=== PATIENT | male | born 1950 | race Caucasian/White ===

== ENCOUNTER 2021-07-29 12:30 | Inpatient (IN) | payer OTHER ==
[~2021-07-29] VITALS: Ht 177.8 cm; Wt 135.0 kg
[2021-07-29] MEDS ORDERED: CefTRIAXone 2gm/D5W 50ml BAG 50 ML IV ONE (12:40)
[2021-07-29 12:48] LABS: ABG BASE EXCESS -3.7 mmol/L (-2.0-2.0); ABG HCO3 32.7 mmol/L (22.0-26.0); ABG OXYGEN SATURATION 92.7 % (94-97); ABG PCO2 (T) 143.9 mmHg (35.0-48.0); ABG PO2 (T) 90.4 mmHg (75.0-100.0); ALLEN'S TEST POSITIVE; FCOHb 1.3 % (0.0-3.9); FLOW 15 L/min; FMetHb 0.4 % (0.0-1.5); FO2Hb 91.1 % (94-97); TOTAL HEMOGLOBIN 15.5 G/dl (14.0-18.0)
[2021-07-29] MEDS ORDERED: ipratropium/albuterol 3ml nebule NEB ONE (12:50)
[2021-07-29] MEDS ORDERED: methylPREDNISolone sod succ 125mg/2ml vial IV ONE (12:50)
[2021-07-29] MEDS ORDERED: azithromycin/NS 500mg/250ml 250 ML IV ONE ×2 (13:05→16:00)
[2021-07-29 13:11] LABS: BASOPHILS # (AUTO) 0.1 X10'3 (0-0.2); BASOPHILS % (AUTO) 0.3 % (0-1); HEMOGLOBIN 14.7 g/dl (14.0-17.9)
[2021-07-29 13:12] LABS: EOSINOPHILS # (AUTO) 0.1 X10'3 (0-0.9); EOSINOPHILS % (AUTO) 0.2 % (0-6); HEMATOCRIT 46.9 % (42.0-52.0); LYMPHOCYTES # (AUTO) 28.1 X10'3 (1.1-4.8); LYMPHOCYTES % (AUTO) 67.9 % (21-51); MEAN CORPUSCULAR HGB CONC 31.3 g/dL (33.0-36.5); MEAN CORPUSCULAR VOLUME 105.5 FL (78-98); MEAN PLATELET VOLUME 8.8 FL (7.4-10.4); MONOCYTES % (AUTO) 2.4 % (2-12); NEUTROPHILS # (AUTO) 12.1 X10'3 (1.8-7.7); NEUTROPHILS % (AUTO) 29.2 % (42-75); PLATELET COUNT 157 X10'3 (140-440); RED BLOOD COUNT 4.45 X10'6 (4.70-6.10); RED CELL DISTRIBUTION WIDTH 15.7 % (11.5-14.5)
[2021-07-29 13:29] LABS: WHITE BLOOD COUNT 41.4 X10'3 (4.5-11.0)
[2021-07-29 13:31] LABS: TOTAL CELLS COUNTED 100
[2021-07-29 13:32] LABS: PLATELET ESTIMATE NORMAL
[2021-07-29 13:36] LABS: ANISOCYTOSIS 1+
--- NOTE | 2021-07-29 13:37 | NUR ---
PER PT DAUGHTER, PT VACCINATED X2 DOSES PHIZER
--- NOTE | 2021-07-29 13:37 | NUR ---
PT RESPONSIVE TO NAME, EYE MOVEMENT TOWARDS VOICE, NODDED HEAD WHEN I EXPLAINED WHERE HE WAS AND THE SITUATION. WHEN ASKED PT IF HE IS IN PAIN, HE DID NOT RESPOND.
[2021-07-29 13:44] LABS: SMUDGE CELLS 2+
[2021-07-29 13:51] LABS: ABG BASE EXCESS -5.5 mmol/L (-2.0-2.0); ABG HCO3 26.7 mmol/L (22.0-26.0); ABG OXYGEN SATURATION 97.4 % (94-97); ABG PCO2 (T) 87.5 mmHg (35.0-48.0); ABG PO2 (T) 121.8 mmHg (75.0-100.0); ALLEN'S TEST POSITIVE; FCOHb 1.3 % (0.0-3.9); FMetHb 0.4 % (0.0-1.5); FO2Hb 95.7 % (94-97); RESPIRATORY RATE 16 b/min; TIDAL VOLUME 522 mL; TOTAL HEMOGLOBIN 15.3 G/dl (14.0-18.0)
[2021-07-29 14:08] LABS: CLARITY,URINE CLOUDY (Clear); COLOR,URINE YELLOW (Yellow); GLUCOSE, URINE 500 mg/dl (Neg); KETONES,URINE NEGATIVE (Neg); LEUKOCYTE ESTERASE ,URINE NEGATIVE (Neg); NITRITES, URINE NEGATIVE (Neg); OCCULT BLOOD,URINE SMALL (Neg); PROTEIN,URINE 100 mg/dl (Neg)
[2021-07-29 14:11] LABS: UA COLLECTION TYPE STRAIGHT CATH
[2021-07-29 14:15] LABS: SQUAMOUS EPITHELIAL CELL,UR MANY /LPF (FEW)
[2021-07-29 14:16] LABS: BACTERIA,URINE 1+ /HPF (Neg); RBC,URINE 0-2 /HPF (0-2); RENAL CELLS, URINE MANY /HPF
[2021-07-29 14:17] LABS: AMORPHOUS URATES 3+
[2021-07-29 14:28] LABS: ALANINE AMINOTRANSFERASE 6 U/L (12-78); ALBUMIN 3.1 G/DL (3.4-5.0); ALBUMIN/GLOBULIN RATIO 0.7 (1.1-1.5); ALKALINE PHOSPHATASE 116 IU/L (46-116); ANION GAP 6 (8-16); ASPARTATE AMINO TRANSFERASE 18 U/L (10-37); BILIRUBIN,TOTAL 0.6 MG/DL (0.1-1.0); BLOOD UREA NITROGEN 41 MG/DL (7-18); BUN/CREATININE RATIO 15.1 (5.4-32.0); CALCIUM 8.3 MG/DL (8.5-10.1); CHLORIDE 98 MMOL/L (99-107); CREATININE 2.71 MG/DL (0.60-1.10); GLUCOSE 435 MG/DL (70-104); SODIUM 135 MMOL/L (135-145); TOTAL CARBON DIOXIDE 31.1 MMOL/L (24-32); TOTAL PROTEIN 7.5 G/DL (6.4-8.2); eGFR 23 ML/MIN
[2021-07-29 14:30] LABS: POTASSIUM 7.1 MMOL/L (3.5-5.1)
[2021-07-29] MEDS ORDERED: sodium polystyrene sulfonate 15gm/60ml oral suspension PO ONE ×3 (14:35→21:30)
[2021-07-29] MEDS ORDERED: furosemide 10 MG/1 ML 10ml inj IV ONE (14:35)
[2021-07-29] MEDS ORDERED: albuterol 2.5 MG/3 ML nebule CONTNEB PRN (14:35)
[2021-07-29] MEDS ORDERED: insulin regular, human 10 units/0.1 ml syringe IV ONE (15:15)
[2021-07-29 15:41] LABS: ABG BASE EXCESS -1.6 mmol/L (-2.0-2.0); ABG HCO3 30.2 mmol/L (22.0-26.0); ABG OXYGEN SATURATION 96.8 % (94-97); ABG PCO2 (T) 89.4 mmHg (35.0-48.0); ABG PO2 (T) 104.2 mmHg (75.0-100.0); ALLEN'S TEST POSITIVE; FCOHb 0.9 % (0.0-3.9); FMetHb 0.4 % (0.0-1.5); FO2Hb 95.5 % (94-97); RESPIRATORY RATE 16 b/min; TIDAL VOLUME 658 mL
[2021-07-29] MEDS ORDERED: ketamine 50 mg/ml 10ml vial IV ONE (15:45)
[2021-07-29] MEDS ORDERED: etomidate 2mg/ml inj. IV ONE (15:45)
[2021-07-29] MEDS ORDERED: propofol 1000mg/100ml bottle 100 ML IV PRN (15:45)
[2021-07-29] MEDS ORDERED: potassium Cl 20mEq/100mL bag 100 ML IV PRN (16:00)
[2021-07-29] MEDS ORDERED: LIDOcaine 2% 10ml TOPICAL JELLY (Urojet) TP ONE (16:00)
[2021-07-29] MEDS ORDERED: ipratropium/albuterol 3ml nebule NEB PRN (16:00)
[2021-07-29] MEDS ORDERED: acetaminophen 325mg tablet PO PRN ×2 (16:00)
[2021-07-29] MEDS ORDERED: potassium CL 10mEq/100ml bag 100 ML IV PRN (16:00)
[2021-07-29] MEDS ORDERED: midazolam 1 mg/ML 2ml injection IV ONE ×2 (16:00→17:10)
[2021-07-29] MEDS ORDERED: CefTRIAXone/D5W-Rocephin 1gm 50 ML IV ONE (16:00)
[2021-07-29] MEDS ORDERED: potassium Cl 20 mEq SR tablet PO PRN ×2 (16:00)
[2021-07-29] MEDS ORDERED: fentaNYL/PF 50MCG/1 ML 2ML syringe IV PRN (16:00)
[2021-07-29] MEDS: normal saline 1000ml 1,000 ML IV SCH ×2 (16:00→22:40)
[2021-07-29] MEDS ORDERED: ondansetron/PF 4mg/2ml inj IV PRN (16:00)
--- NOTE | 2021-07-29 16:17 | NUR ---
VERBAL ORDER FOR ADDITIONAL 20MG ETOMIDATE DUE TO DIFFICULT INTUBATION. PER DR. YOON
--- NOTE | 2021-07-29 16:20 | NUR ---
BP 54/35, UNABLE TO PALPATE PULE. NO MECHANICAL FUNCTION OF THE HEART ON ULTRASOUND. COMPRESSIONS STARTED. DC'D COMPRESSIONS, PULSE PALPABLE. BEDSIDE ECHO ORDERED.
[2021-07-29] MEDS ORDERED: NORepinephrine 8mg/ 250ml NS 250 ML IV ONE (16:25)
[2021-07-29] MEDS ORDERED: DOPamine 400MG/D5W 250ML CRITICAL CARE IV SCH (16:35)
[2021-07-29] MEDS ORDERED: GABA300C PO (16:53)
[2021-07-29] MEDS ORDERED: CARV6.253 PO (16:53)
[2021-07-29] MEDS ORDERED: OMEP-50 PO (16:53)
[2021-07-29] MEDS ORDERED: SERT-434 PO (16:53)
[2021-07-29] MEDS ORDERED: FURO40TA4 PO (16:53)
[2021-07-29] MEDS ORDERED: ALBU2.5V10 NEB (16:53)
[2021-07-29] MEDS ORDERED: SPIR25TA5 PO (16:53)
[2021-07-29] MEDS ORDERED: INSU100V9 SQ (16:53)
[2021-07-29] MEDS ORDERED: CELE100C98 PO (16:53)
[2021-07-29] MEDS ORDERED: DIVA-37 PO (16:53)
[2021-07-29] MEDS ORDERED: SIMV10TA98 PO (16:53)
[2021-07-29] MEDS ORDERED: LEVO200T8 PO (16:53)
[2021-07-29] MEDS ORDERED: INSU100V11 SQ (16:53)
--- NOTE | 2021-07-29 17:16 | NUR ---
MD HAS NO ORDERS FOR SEDATION AT THIS TIME PER [id number]. ADMINISTERING 2MG IVP ATIVAN VERBAL ORDERS, MD AT BEDSIDE. Addendum: 07/29/21 at 1724 by LOWLALUANALI ERROR: NO ATIVAN WAS GIVEN. ORDER WAS 2MG MIDAZOLAM. 2 MG MIDAZOLAM ADMINISTERED ORDERED.
--- NOTE | 2021-07-29 17:18 | NUR ---
ATTEMPTING TO PLACE SECOND CENTRAL LINE
[2021-07-29] MEDS ORDERED: fentaNYL/PF 50MCG/1 ML 2ML syringe IV ONE (17:40)
[2021-07-29] MEDS ORDERED: midazolam 100mg in NS 100ml 100 ML IV PRN (17:40)
[2021-07-29 17:53] LABS: ABG BASE EXCESS -5.4 mmol/L (-2.0-2.0); ABG OXYGEN SATURATION 91.4 % (94-97); ABG PCO2 (T) 82.7 mmHg (35.0-48.0); ABG PO2 (T) 71.6 mmHg (75.0-100.0); ALLEN'S TEST POSITIVE; FCOHb 0.7 % (0.0-3.9); FMetHb 0.3 % (0.0-1.5); FO2Hb 90.5 % (94-97); PEEP 5 cm H2O; RESPIRATORY RATE 20 b/min; TIDAL VOLUME 374 mL; TOTAL HEMOGLOBIN 14.2 G/dl (14.0-18.0)
[2021-07-29] MEDS: FENTANYL-0.9 % NACL/PF 100 ML IV PRN (18:00)
[2021-07-29] MEDS: midazolam 100mg in NS 100ml 100 ML IV PRN (18:01)
--- NOTE | 2021-07-29 18:32 | NUR ---
REPORT CALLED TO KIDS ACTIVITIES COACH. WAITING FOR RT TO TAKE PT TO CT. WILL THEN TRANSPORT PT TO ICU.
[2021-07-29 19:00] VITALS: BP 125/66
[2021-07-29] MEDS ORDERED: dextrose 50%-water 50ml dispensing syringe IV ONE (19:10)
[2021-07-29] MEDS ORDERED: sodium bicarbonate (8.4%) 1 mEq/ml syringe IV ONE (19:10)
[2021-07-29] MEDS ORDERED: calcium chloride 100 MG/1 ML inj IV ONE (19:10)
[2021-07-29] MEDS ORDERED: albuterol 2.5 MG/3 ML nebule CONTNEB ONE (19:10)
[2021-07-29] MEDS ORDERED: insulin regular, human U-100 3ml vial - multi-dose IV ONE (19:10)
[2021-07-29] MEDS ORDERED: sodium bicarbonate (8.4%) 1 mEq/ml syringe ONE (19:48)
[2021-07-29 20:00] VITALS: BP 109/59
[2021-07-29] MEDS: divalproex sodium 500mg tablet.DR PO SCH (20:00)
[2021-07-29] MEDS: ipratropium/albuterol 3ml nebule NEB SCH ×2 (20:33→23:55)
[2021-07-29 21:00] VITALS: BP 117/67
[2021-07-29] MEDS ORDERED: atorvastatin 10mg tablet PO SCH (21:00)
[2021-07-29 22:00] VITALS: BP 130/81
[2021-07-29 23:00] VITALS: BP 120/75
[2021-07-29] MEDS ORDERED: glucagon, human recombinant 1mg kit SUBCUT PRN (23:25)
[2021-07-29] MEDS ORDERED: dextrose ORAL solution 15 GM/59 ML bottle PO PRN ×2 (23:25)
[2021-07-29] MEDS ORDERED: dextrose 50%-water 50ml dispensing syringe IV PRN (23:25)
[2021-07-29] MEDS ORDERED: MESSAGE TO PHARMACY PO ONE (23:25)
[2021-07-29] MEDS: famotidine/PF 10 mg/ml inj IV SCH (23:41)
[2021-07-29] MEDS: docusate sod 100mg capsule PO SCH (23:43)
[2021-07-29] MEDS: heparin, porcine 5000 units/ml vial SQ SCH (23:44)
[2021-07-29] MEDS: DOPamine 400mg/D5W 250ml 250 ML IV SCH (23:54)
[2021-07-30] VITALS (22 sets, daily range): BP systolic 93–149; BP diastolic 59–85
[2021-07-30] MEDS: insulin Lispro (HumaLOG) vial - multi-dose SQ SCH ×5 (00:35→11:16)
[2021-07-30] MEDS: insulin glargine (Lantus) pen - multi-dose SQ SCH (00:36)
[2021-07-30] MEDS: valproate sod 250mg/5ml UD oral syrup CORPAK SCH ×4 (00:38→20:20)
[2021-07-30 00:41] LABS: EOSINOPHILS % (AUTO) 0 % (0-6); HEMOGLOBIN 12.9 g/dl (14.0-17.9)
[2021-07-30 00:44] LABS: BASOPHILS % (AUTO) 0.1 % (0-1); LYMPHOCYTES # (AUTO) 18.2 X10'3 (1.1-4.8); LYMPHOCYTES % (AUTO) 60.8 % (21-51); MEAN CORPUSCULAR HEMOGLOBIN 33.7 PG (27.0-31.0); MEAN CORPUSCULAR HGB CONC 32.2 g/dL (33.0-36.5); MEAN CORPUSCULAR VOLUME 104.4 FL (78-98); MONOCYTES # (AUTO) 1.3 X10'3 (0-0.9); MONOCYTES % (AUTO) 4.3 % (2-12); NEUTROPHILS # (AUTO) 10.5 X10'3 (1.8-7.7); NEUTROPHILS % (AUTO) 34.8 % (42-75); PLATELET COUNT 105 X10'3 (140-440); RED BLOOD COUNT 3.83 X10'6 (4.70-6.10); RED CELL DISTRIBUTION WIDTH 15.2 % (11.5-14.5)
[2021-07-30 00:59] LABS: ALANINE AMINOTRANSFERASE 6 U/L (12-78); ALBUMIN 2.4 G/DL (3.4-5.0); ALBUMIN/GLOBULIN RATIO 0.6 (1.1-1.5); ALKALINE PHOSPHATASE 81 IU/L (46-116); ANION GAP 14 (8-16); ASPARTATE AMINO TRANSFERASE 16 U/L (10-37); BILIRUBIN,TOTAL 0.7 MG/DL (0.1-1.0); BLOOD UREA NITROGEN 43 MG/DL (7-18); BUN/CREATININE RATIO 16.2 (5.4-32.0); CALCIUM 8.4 MG/DL (8.5-10.1); CHLORIDE 99 MMOL/L (99-107); CREATININE 2.65 MG/DL (0.60-1.10); MAGNESIUM 1.6 MG/DL (1.5-2.4); PHOSPHORUS 1.7 MG/DL (2.3-4.5); SODIUM 135 MMOL/L (135-145); TOTAL CARBON DIOXIDE 22.1 MMOL/L (24-32); TOTAL PROTEIN 6.1 G/DL (6.4-8.2); TRIGLYCERIDES 118 MG/DL (20-135); eGFR 24 ML/MIN
[2021-07-30 01:11] LABS: GLUCOSE 623 MG/DL (70-104)
--- NOTE | 2021-07-30 02:06 | NUR ---
Pt blood sugar is 575 pt was given [address] Seals [id number]
[2021-07-30] MEDS: Insulin Reg/NS 100units/100mL 100 ML IV SCH ×2 (02:40→14:36)
[2021-07-30 03:29] LABS: PLATELET ESTIMATE DECREASED; TOTAL CELLS COUNTED 100
[2021-07-30 03:30] LABS: ANISOCYTOSIS FEW; SMUDGE CELLS 1+
[2021-07-30 03:31] LABS: STOMATOCYTES FEW
[2021-07-30] MEDS: ipratropium/albuterol 3ml nebule NEB SCH ×6 (04:29→23:29)
[2021-07-30 04:47] LABS: ABG BASE EXCESS -6.3 mmol/L (-2.0-2.0); ABG HCO3 16.8 mmol/L (22.0-26.0); ABG OXYGEN SATURATION 97.8 % (94-97); ABG PCO2 (T) 26.3 mmHg (35.0-48.0); ABG PO2 (T) 91.3 mmHg (75.0-100.0); ALLEN'S TEST Modified; FCOHb 0.3 % (0.0-3.9); FMetHb 0.4 % (0.0-1.5); FO2Hb 97.1 % (94-97); PEEP 5 cm H2O; RESPIRATORY RATE 24 b/min; TIDAL VOLUME 601 mL; TOTAL HEMOGLOBIN 13.8 G/dl (14.0-18.0)
[2021-07-30] MEDS: DOPamine 400mg/D5W 250ml 250 ML IV SCH (05:29)
[2021-07-30] MEDS: normal saline 1000ml 1,000 ML IV SCH ×3 (05:35→18:40)
[2021-07-30] MEDS: FENTANYL-0.9 % NACL/PF 100 ML IV PRN ×2 (05:46→23:35)
[2021-07-30] MEDS ORDERED: levoTHYROXINE 100mcg tablet PO SCH (07:00)
[2021-07-30] MEDS: docusate sod 100mg capsule PO SCH (08:00)
[2021-07-30] MEDS: K and/or MAG REPLACEMENT MC SCH (08:00)
[2021-07-30] MEDS ORDERED: sertraline 50mg tablet PO SCH (08:00)
[2021-07-30] MEDS: CefTRIAXone/D5W-Rocephin 1gm 50 ML IV SCH (10:07)
[2021-07-30] MEDS: methylPREDNISolone sod succ/PF 40mg inj. IV SCH ×3 (10:09→20:35)
[2021-07-30] MEDS: famotidine/PF 10 mg/ml inj IV SCH ×2 (10:10→20:37)
[2021-07-30] MEDS: heparin, porcine 5000 units/ml vial SQ SCH ×2 (10:11→20:40)
[2021-07-30] MEDS: azithromycin/NS 500mg/250ml 250 ML IV SCH (10:44)
[2021-07-30] MEDS ORDERED: NORepinephrine 8mg/ 250ml NS 250 ML IV PRN (10:55)
--- NOTE | 2021-07-30 11:43 | NUR ---
TF Consult: Pt intubated admit DX acute respiratory failure, PNA, SCOTT, CLL, T2DM, and hyperkalemia per EMR. OG in place w/ MAP 70 this AM and TF to start per senior partner; recs below using IBW pending scaled wt. Hx T2DM A1C 8.5% w/ Glu 430-623mg/dl yesterday started on insulin drip w/ Glu 307mg/dl this AM per RN pending documentation. Started on Lantus last night and takes 65units Lantus HS per EMR. Will monitor for TF tolerance and adjustment needs as medically indicated. Rec: 1. Continuous TF per MD using Vital High Protein at 90ml/hr goal; to provide 2160ml volume/day, 2160 kcals, 1814ml water, and 189g protein. 2. additional water flush 100ml Q4H; serum Na 135mmol/L though free water okay per MD at rounds 3. PALB Q /; daily scaled wts 4. routine bowel care 5. monitor for TF tolerance and adjustment needs 6. DM ed once appropriate following extubation; hx T2DM A1C 8.5% Addendum: 07/30/21 at [address] Amended: Links added.
[2021-07-30] MEDS ORDERED: acetaminophen 325mg tablet OGT PRN (14:02)
[2021-07-30] MEDS ORDERED: dextrose ORAL solution 15 GM/59 ML bottle OGT PRN (14:03)
[2021-07-30] MEDS ORDERED: potassium Cl 20 mEq SR tablet OGT PRN ×2 (14:04→14:05)
[2021-07-30 16:00] LABS: CLARITY,URINE CLEAR (Clear); COLOR,URINE YELLOW (Yellow); GLUCOSE, URINE NEGATIVE (Neg); KETONES,URINE NEGATIVE (Neg); LEUKOCYTE ESTERASE ,URINE NEGATIVE (Neg); NITRITES, URINE NEGATIVE (Neg); OCCULT BLOOD,URINE TRACE-LYSED (Neg); PH,URINE 7.5 (4.8-8.0); PROTEIN,URINE NEGATIVE (Neg); TOTAL PROTEIN,URINE RANDOM 26.6 MG/DL
[2021-07-30 16:03] LABS: UA COLLECTION TYPE NON-SPECIFIED
[2021-07-30 16:20] LABS: BACTERIA,URINE FEW /HPF (Neg); MUCUS STRANDS NONE SEEN /LPF (Neg); RBC,URINE 0-2 /HPF (0-2); SQUAMOUS EPITHELIAL CELL,UR NONE SEEN /LPF (FEW); WBC,URINE 0-4 /HPF (0-4)
[2021-07-30 16:27] LABS: UA EOSINOPHILS NO EOS /HPF
--- NOTE | 2021-07-30 19:00 | NUR ---
Patient in room ICU 2045. I have received report from am RN and had the opportunity to ask questions and assume patient care.
[2021-07-30] MEDS: atorvastatin 10mg tablet OGT SCH (20:21)
[2021-07-30] MEDS: docusate sodium 100mg/10ml UD cup OGT SCH (20:21)
[2021-07-30] MEDS: lactobacillus rhamnosus 10,000 MMU CELLS/CAPSULE PO SCH (20:22)
[2021-07-30] MEDS: mineral oil/petrolatum ophthal oint EACHEYE SCH (20:41)
[2021-07-30] MEDS: midazolam 100mg in NS 100ml 100 ML IV PRN (23:36)
[2021-07-31] VITALS (24 sets, daily range): BP systolic 104–152; BP diastolic 53–83
[2021-07-31] MEDS: Insulin Reg/NS 100units/100mL 100 ML IV SCH ×2 (01:14→13:47)
[2021-07-31] MEDS: normal saline 1000ml 1,000 ML IV SCH ×3 (02:21→14:45)
[2021-07-31] MEDS: methylPREDNISolone sod succ/PF 40mg inj. IV SCH ×4 (02:22→19:43)
[2021-07-31] MEDS: mineral oil/petrolatum ophthal oint EACHEYE SCH ×4 (02:22→19:46)
[2021-07-31] MEDS: valproate sod 250mg/5ml UD oral syrup CORPAK SCH ×4 (02:26→19:42)
[2021-07-31 02:53] LABS: BASOPHILS % (AUTO) 0.1 % (0-1); EOSINOPHILS % (AUTO) 0 % (0-6); HEMATOCRIT 37.8 % (42.0-52.0)
[2021-07-31 02:55] LABS: ALANINE AMINOTRANSFERASE 7 U/L (12-78); ALBUMIN 2.1 G/DL (3.4-5.0); ALBUMIN/GLOBULIN RATIO 0.6 (1.1-1.5); ALKALINE PHOSPHATASE 70 IU/L (46-116); ANION GAP 12 (8-16); ASPARTATE AMINO TRANSFERASE 15 U/L (10-37); BILIRUBIN,TOTAL 0.3 MG/DL (0.1-1.0); BLOOD UREA NITROGEN 43 MG/DL (7-18); CALCIUM 8.5 MG/DL (8.5-10.1); CHLORIDE 107 MMOL/L (99-107); CREATININE 2.26 MG/DL (0.60-1.10); GLUCOSE 136 MG/DL (70-104); MAGNESIUM 1.4 MG/DL (1.5-2.4); PHOSPHORUS 1.8 MG/DL (2.3-4.5); POTASSIUM 3.3 MMOL/L (3.5-5.1); SODIUM 142 MMOL/L (135-145); TOTAL CARBON DIOXIDE 23.1 MMOL/L (24-32); TOTAL PROTEIN 5.8 G/DL (6.4-8.2); eGFR 29 ML/MIN
[2021-07-31 02:56] LABS: HEMOGLOBIN 12.4 g/dl (14.0-17.9); LYMPHOCYTES # (AUTO) 25.9 X10'3 (1.1-4.8); LYMPHOCYTES % (AUTO) 61.8 % (21-51); MEAN CORPUSCULAR HEMOGLOBIN 32.8 PG (27.0-31.0); MEAN CORPUSCULAR HGB CONC 32.8 g/dL (33.0-36.5); MEAN CORPUSCULAR VOLUME 99.9 FL (78-98); MEAN PLATELET VOLUME 9.2 FL (7.4-10.4); MONOCYTES # (AUTO) 1.3 X10'3 (0-0.9); MONOCYTES % (AUTO) 3.2 % (2-12); NEUTROPHILS # (AUTO) 14.6 X10'3 (1.8-7.7); NEUTROPHILS % (AUTO) 34.9 % (42-75); PLATELET COUNT 127 X10'3 (140-440); RED BLOOD COUNT 3.79 X10'6 (4.70-6.10); RED CELL DISTRIBUTION WIDTH 15.5 % (11.5-14.5)
[2021-07-31] MEDS: ipratropium/albuterol 3ml nebule NEB SCH ×6 (03:24→22:56)
[2021-07-31 05:01] LABS: ABG BASE EXCESS -1.9 mmol/L (-2.0-2.0); ABG HCO3 18.8 mmol/L (22.0-26.0); ABG OXYGEN SATURATION 95.6 % (94-97); ABG PCO2 (T) 21.5 mmHg (35.0-48.0); ABG PO2 (T) 70.4 mmHg (75.0-100.0); ALLEN'S TEST POSITIVE; FCOHb 0.3 % (0.0-3.9); FMetHb 0.3 % (0.0-1.5); PATIENT TEMPERATURE 36.4; PEEP 5 cm H2O; RESPIRATORY RATE 22 b/min; TOTAL HEMOGLOBIN 12.6 G/dl (14.0-18.0)
[2021-07-31] MEDS ORDERED: magnesium 2GM in 50ml NS 50 ML IV ONE (06:25)
[2021-07-31] MEDS ORDERED: sodium phosphate inj. 30 MMOL in dextrose 5%-water 250 ML IV ONE (06:25)
[2021-07-31 07:54] LABS: ANISOCYTOSIS 1+; PLATELET ESTIMATE DECREASED; TOTAL CELLS COUNTED 100
[2021-07-31 07:55] LABS: SMUDGE CELLS 1+
[2021-07-31] MEDS: docusate sodium 100mg/10ml UD cup OGT SCH ×2 (08:00→19:45)
[2021-07-31] MEDS: K and/or MAG REPLACEMENT MC SCH (08:00)
[2021-07-31] MEDS: CefTRIAXone/D5W-Rocephin 1gm 50 ML IV SCH (09:34)
[2021-07-31] MEDS: sertraline 50mg tablet OGT SCH (09:35)
[2021-07-31] MEDS: levoTHYROXINE 100mcg tablet OGT SCH (09:35)
[2021-07-31] MEDS: lactobacillus rhamnosus 10,000 MMU CELLS/CAPSULE PO SCH ×2 (09:35→19:44)
[2021-07-31] MEDS: famotidine/PF 10 mg/ml inj IV SCH ×2 (09:36→19:43)
[2021-07-31] MEDS: heparin, porcine 5000 units/ml vial SQ SCH ×2 (09:36→19:43)
[2021-07-31] MEDS: azithromycin/NS 500mg/250ml 250 ML IV SCH (09:36)
[2021-07-31] MEDS: insulin glargine (Lantus) pen - multi-dose SQ SCH (16:07)
[2021-07-31] MEDS: insulin regular, human U-100 3ml vial - multi-dose SQ SCH ×2 (16:10→20:34)
[2021-07-31] MEDS: atorvastatin 10mg tablet OGT SCH (19:56)
[2021-07-31] MEDS: FENTANYL-0.9 % NACL/PF 100 ML IV PRN (20:47)
[2021-08-01] VITALS (23 sets, daily range): BP systolic 117–136; BP diastolic 57–73
[2021-08-01] MEDS: mineral oil/petrolatum ophthal oint EACHEYE SCH ×4 (02:00→19:43)
[2021-08-01] MEDS: insulin regular, human U-100 3ml vial - multi-dose SQ SCH ×4 (02:26→21:20)
[2021-08-01 03:15] LABS: BASOPHILS % (AUTO) 0.1 % (0-1); EOSINOPHILS % (AUTO) 0 % (0-6); HEMOGLOBIN 11.9 g/dl (14.0-17.9)
[2021-08-01 03:17] LABS: HEMATOCRIT 36.9 % (42.0-52.0); LYMPHOCYTES # (AUTO) 17.3 X10'3 (1.1-4.8); LYMPHOCYTES % (AUTO) 59.9 % (21-51); MEAN CORPUSCULAR HEMOGLOBIN 32.7 PG (27.0-31.0); MEAN CORPUSCULAR HGB CONC 32.2 g/dL (33.0-36.5); MEAN CORPUSCULAR VOLUME 101.6 FL (78-98); MEAN PLATELET VOLUME 9.9 FL (7.4-10.4); MONOCYTES # (AUTO) 0.7 X10'3 (0-0.9); MONOCYTES % (AUTO) 2.5 % (2-12); NEUTROPHILS # (AUTO) 10.8 X10'3 (1.8-7.7); NEUTROPHILS % (AUTO) 37.5 % (42-75); PLATELET COUNT 111 X10'3 (140-440); RED BLOOD COUNT 3.64 X10'6 (4.70-6.10); RED CELL DISTRIBUTION WIDTH 16.1 % (11.5-14.5)
[2021-08-01] MEDS: methylPREDNISolone sod succ/PF 40mg inj. IV SCH ×4 (03:24→19:42)
[2021-08-01] MEDS: valproate sod 250mg/5ml UD oral syrup CORPAK SCH ×4 (03:25→19:42)
[2021-08-01 03:26] LABS: ALANINE AMINOTRANSFERASE 6 U/L (12-78); ALBUMIN/GLOBULIN RATIO 0.6 (1.1-1.5); ALKALINE PHOSPHATASE 72 IU/L (46-116); ANION GAP 14 (8-16); ASPARTATE AMINO TRANSFERASE 13 U/L (10-37); BILIRUBIN,TOTAL 0.3 MG/DL (0.1-1.0); BLOOD UREA NITROGEN 59 MG/DL (7-18); BUN/CREATININE RATIO 29.4 (5.4-32.0); CALCIUM 7.9 MG/DL (8.5-10.1); CHLORIDE 106 MMOL/L (99-107); CREATININE 2.01 MG/DL (0.60-1.10); GLUCOSE 405 MG/DL (70-104); MAGNESIUM 1.9 MG/DL (1.5-2.4); PHOSPHORUS 3.5 MG/DL (2.3-4.5); POTASSIUM 3.6 MMOL/L (3.5-5.1); SODIUM 141 MMOL/L (135-145); TOTAL PROTEIN 5.5 G/DL (6.4-8.2); eGFR 33 ML/MIN
[2021-08-01] MEDS: ipratropium/albuterol 3ml nebule NEB SCH ×6 (03:49→21:35)
[2021-08-01 04:45] LABS: ABG BASE EXCESS -3.6 mmol/L (-2.0-2.0); ABG HCO3 19.2 mmol/L (22.0-26.0); ABG OXYGEN SATURATION 94.6 % (94-97); ABG PCO2 (T) 27.5 mmHg (35.0-48.0); ABG PO2 (T) 69.5 mmHg (75.0-100.0); ALLEN'S TEST Modified; FCOHb 0.3 % (0.0-3.9); FMetHb 0.4 % (0.0-1.5); FO2Hb 93.9 % (94-97); PATIENT TEMPERATURE 36.3; PEEP 5 cm H2O; RESPIRATORY RATE 18 b/min; TOTAL HEMOGLOBIN 13.3 G/dl (14.0-18.0)
[2021-08-01 07:20] LABS: NUCLEATED RED BLOOD CELLS 1 /100WBC (0-0); TOTAL CELLS COUNTED 100
[2021-08-01 07:21] LABS: ANISOCYTOSIS 1+; PLATELET ESTIMATE DECREASED; SMUDGE CELLS 2+
[2021-08-01] MEDS: levoTHYROXINE 100mcg tablet OGT SCH (09:03)
[2021-08-01] MEDS: famotidine/PF 10 mg/ml inj IV SCH ×2 (09:04→19:43)
[2021-08-01] MEDS: heparin, porcine 5000 units/ml vial SQ SCH ×2 (09:04→19:43)
[2021-08-01] MEDS: sertraline 50mg tablet OGT SCH (09:04)
[2021-08-01] MEDS: lactobacillus rhamnosus 10,000 MMU CELLS/CAPSULE PO SCH ×2 (09:04→19:43)
[2021-08-01] MEDS: K and/or MAG REPLACEMENT MC SCH (09:05)
[2021-08-01] MEDS: azithromycin/NS 500mg/250ml 250 ML IV SCH (09:05)
[2021-08-01] MEDS: CefTRIAXone/D5W-Rocephin 1gm 50 ML IV SCH (09:05)
[2021-08-01] MEDS: docusate sodium 100mg/10ml UD cup OGT SCH ×2 (09:06→19:43)
[2021-08-01] MEDS: normal saline 1000ml 1,000 ML IV SCH (14:19)
[2021-08-01] MEDS: midazolam 100mg in NS 100ml 100 ML IV PRN (17:51)
[2021-08-01] MEDS: FENTANYL-0.9 % NACL/PF 100 ML IV PRN (17:54)
[2021-08-01] MEDS: Insulin Reg/NS 100units/100mL 100 ML IV SCH (19:43)
[2021-08-01] MEDS ORDERED: insulin glargine (Lantus) pen - multi-dose SQ SCH (21:00)
[2021-08-01] MEDS: insulin glargine (Lantus) pen - multi-dose SQ SCH (21:22)
[2021-08-01] MEDS: atorvastatin 10mg tablet OGT SCH (21:44)
[2021-08-02] VITALS (24 sets, daily range): BP systolic 126–160; BP diastolic 64–85
[2021-08-02] MEDS: insulin regular, human U-100 3ml vial - multi-dose SQ SCH ×4 (01:25→21:01)
[2021-08-02] MEDS: methylPREDNISolone sod succ/PF 40mg inj. IV SCH ×4 (02:19→20:46)
[2021-08-02] MEDS: valproate sod 250mg/5ml UD oral syrup CORPAK SCH ×4 (02:19→20:46)
[2021-08-02] MEDS: mineral oil/petrolatum ophthal oint EACHEYE SCH ×4 (02:20→20:47)
[2021-08-02 02:22] LABS: BASOPHILS % (AUTO) 0.1 % (0-1); EOSINOPHILS % (AUTO) 0 % (0-6); HEMOGLOBIN 12.5 g/dl (14.0-17.9); MEAN PLATELET VOLUME 9.5 FL (7.4-10.4); NEUTROPHILS # (AUTO) 10.2 X10'3 (1.8-7.7); RED CELL DISTRIBUTION WIDTH 16.3 % (11.5-14.5)
[2021-08-02 02:24] LABS: HEMATOCRIT 38.3 % (42.0-52.0); LYMPHOCYTES % (AUTO) 62.8 % (21-51); MEAN CORPUSCULAR HEMOGLOBIN 33.1 PG (27.0-31.0); MEAN CORPUSCULAR HGB CONC 32.7 g/dL (33.0-36.5); MEAN CORPUSCULAR VOLUME 101.3 FL (78-98); MONOCYTES % (AUTO) 3.4 % (2-12); NEUTROPHILS % (AUTO) 33.7 % (42-75); PLATELET COUNT 113 X10'3 (140-440); RED BLOOD COUNT 3.78 X10'6 (4.70-6.10)
[2021-08-02 02:29] LABS: WHITE BLOOD COUNT 30.3 X10'3 (4.5-11.0)
[2021-08-02 02:42] LABS: ALANINE AMINOTRANSFERASE 8 U/L (12-78); ALBUMIN 2.1 G/DL (3.4-5.0); ALBUMIN/GLOBULIN RATIO 0.6 (1.1-1.5); ALKALINE PHOSPHATASE 82 IU/L (46-116); ASPARTATE AMINO TRANSFERASE 8 U/L (10-37); BILIRUBIN,TOTAL 0.3 MG/DL (0.1-1.0); BLOOD UREA NITROGEN 74 MG/DL (7-18); BUN/CREATININE RATIO 42.8 (5.4-32.0); CALCIUM 8.3 MG/DL (8.5-10.1); CREATININE 1.73 MG/DL (0.60-1.10); GLUCOSE 358 MG/DL (70-104); PHOSPHORUS 3.4 MG/DL (2.3-4.5); PREALBUMIN 22.9 MG/DL (19-36); TOTAL PROTEIN 5.8 G/DL (6.4-8.2); eGFR 39 ML/MIN
[2021-08-02] MEDS: ipratropium/albuterol 3ml nebule NEB SCH ×6 (03:07→23:17)
[2021-08-02 03:25] LABS: ANION GAP 14 (8-16); CHLORIDE 111 MMOL/L (99-107); POTASSIUM 3.7 MMOL/L (3.5-5.1); SODIUM 148 MMOL/L (135-145); TOTAL CARBON DIOXIDE 23.3 MMOL/L (24-32)
[2021-08-02 03:57] LABS: ANISOCYTOSIS 1+; NUCLEATED RED BLOOD CELLS 1 /100WBC (0-0); PLATELET ESTIMATE DECREASED; TOTAL CELLS COUNTED 100
[2021-08-02 03:58] LABS: SMUDGE CELLS 2+
[2021-08-02 05:09] LABS: ABG BASE EXCESS -4.7 mmol/L (-2.0-2.0); ABG HCO3 17.9 mmol/L (22.0-26.0); ABG OXYGEN SATURATION 95.6 % (94-97); ABG PCO2 (T) 26.1 mmHg (35.0-48.0); ABG PO2 (T) 79.5 mmHg (75.0-100.0); ALLEN'S TEST Modified; FCOHb 0.3 % (0.0-3.9); FMetHb 0.3 % (0.0-1.5); PATIENT TEMPERATURE 36.4; PEEP 5 cm H2O; RESPIRATORY RATE 18 b/min; TOTAL HEMOGLOBIN 13.8 G/dl (14.0-18.0)
[2021-08-02] MEDS: dexmedetomidin/NS 400mcg/100ml 100 ML IV SCH ×2 (05:22→13:35)
[2021-08-02 06:11] LABS: WHITE BLOOD COUNT 28.9 X10'3 (4.5-11.0)
[2021-08-02] MEDS: famotidine/PF 10 mg/ml inj IV SCH ×2 (07:52→20:47)
[2021-08-02] MEDS: lactobacillus rhamnosus 10,000 MMU CELLS/CAPSULE PO SCH ×2 (07:52→20:46)
[2021-08-02] MEDS: levoTHYROXINE 100mcg tablet OGT SCH (07:52)
[2021-08-02] MEDS: sertraline 50mg tablet OGT SCH (07:52)
[2021-08-02] MEDS: azithromycin/NS 500mg/250ml 250 ML IV SCH (07:53)
[2021-08-02] MEDS: CefTRIAXone/D5W-Rocephin 1gm 50 ML IV SCH (07:53)
[2021-08-02] MEDS: docusate sodium 100mg/10ml UD cup OGT SCH ×2 (07:54→20:47)
[2021-08-02] MEDS: heparin, porcine 5000 units/ml vial SQ SCH ×2 (07:54→20:46)
--- NOTE | 2021-08-02 11:41 | NUR ---
Reassessment: Pt remains intubated and sedated w/ TF running at goal of Vital High Protein at 90ml/hr and tolerating well. Noted that free water flush has been increased from 100ml Q4 to 200ml Q6 per MD. No BM documented yet though pt receiving routine colace. No change to recommendations at this time, will continue to monitor. Rec: 1. Continuous TF per MD using Vital High Protein at 90ml/hr goal; to provide 2160ml volume/day, 2160 kcals, 1814ml water, and 189g protein. 2. additional water flush 100ml Q4H; serum Na 135mmol/L though free water okay per MD at rounds 3. PALB Q /; daily scaled wts 4. routine bowel care 5. monitor for TF tolerance and adjustment needs 6. DM ed once appropriate following extubation; hx T2DM A1C 8.5% Addendum: 08/02/21 at [address] Amended: Links added.
[2021-08-02] MEDS: FENTANYL-0.9 % NACL/PF 100 ML IV PRN (13:35)
[2021-08-02] MEDS: atorvastatin 10mg tablet OGT SCH (20:46)
[2021-08-02] MEDS: insulin glargine (Lantus) pen - multi-dose SQ SCH (21:03)
[2021-08-03] VITALS (22 sets, daily range): BP systolic 126–161; BP diastolic 66–96
[2021-08-03] MEDS: mineral oil/petrolatum ophthal oint EACHEYE SCH ×4 (02:42→19:06)
[2021-08-03] MEDS: methylPREDNISolone sod succ/PF 40mg inj. IV SCH ×4 (02:42→19:04)
[2021-08-03] MEDS: valproate sod 250mg/5ml UD oral syrup CORPAK SCH ×4 (02:42→19:04)
[2021-08-03] MEDS: insulin regular, human U-100 3ml vial - multi-dose SQ SCH ×4 (02:47→21:35)
[2021-08-03] MEDS: ipratropium/albuterol 3ml nebule NEB SCH ×5 (02:48→20:24)
[2021-08-03 03:42] LABS: EOSINOPHILS % (AUTO) 0 % (0-6); HEMOGLOBIN 13.4 g/dl (14.0-17.9); MEAN CORPUSCULAR HGB CONC 32.4 g/dL (33.0-36.5)
[2021-08-03 03:44] LABS: BASOPHILS % (AUTO) 0 % (0-1); HEMATOCRIT 41.3 % (42.0-52.0); LYMPHOCYTES # (AUTO) 22.7 X10'3 (1.1-4.8); LYMPHOCYTES % (AUTO) 71.5 % (21-51); MEAN CORPUSCULAR HEMOGLOBIN 32.9 PG (27.0-31.0); MEAN CORPUSCULAR VOLUME 101.6 FL (78-98); MONOCYTES % (AUTO) 3.2 % (2-12); NEUTROPHILS # (AUTO) 8.1 X10'3 (1.8-7.7); NEUTROPHILS % (AUTO) 25.3 % (42-75); PLATELET COUNT 112 X10'3 (140-440); RED BLOOD COUNT 4.06 X10'6 (4.70-6.10); RED CELL DISTRIBUTION WIDTH 16.1 % (11.5-14.5)
[2021-08-03 03:58] LABS: ALANINE AMINOTRANSFERASE 7 U/L (12-78); ALBUMIN 2.3 G/DL (3.4-5.0); ALBUMIN/GLOBULIN RATIO 0.6 (1.1-1.5); ALKALINE PHOSPHATASE 82 IU/L (46-116); ANION GAP 11 (8-16); ASPARTATE AMINO TRANSFERASE 9 U/L (10-37); BILIRUBIN,TOTAL 0.3 MG/DL (0.1-1.0); BLOOD UREA NITROGEN 82 MG/DL (7-18); BUN/CREATININE RATIO 51.9 (5.4-32.0); CALCIUM 8.3 MG/DL (8.5-10.1); CHLORIDE 111 MMOL/L (99-107); CREATININE 1.58 MG/DL (0.60-1.10); GLUCOSE 223 MG/DL (70-104); PHOSPHORUS 3.7 MG/DL (2.3-4.5); POTASSIUM 4.8 MMOL/L (3.5-5.1); SODIUM 147 MMOL/L (135-145); TOTAL CARBON DIOXIDE 24.8 MMOL/L (24-32); eGFR 43 ML/MIN
[2021-08-03 04:06] LABS: WHITE BLOOD COUNT 31.8 X10'3 (4.5-11.0)
[2021-08-03 05:10] LABS: ABG BASE EXCESS -4.5 mmol/L (-2.0-2.0); ABG HCO3 18.5 mmol/L (22.0-26.0); ABG OXYGEN SATURATION 94.9 % (94-97); ABG PCO2 (T) 28.8 mmHg (35.0-48.0); ABG PO2 (T) 75.8 mmHg (75.0-100.0); ALLEN'S TEST Modified; FCOHb 0.1 % (0.0-3.9); FMetHb 0.3 % (0.0-1.5); FO2Hb 94.5 % (94-97); PEEP 5 cm H2O; RESPIRATORY RATE 18 b/min; TOTAL HEMOGLOBIN 14.6 G/dl (14.0-18.0)
[2021-08-03 05:17] LABS: ANISOCYTOSIS 1+; NUCLEATED RED BLOOD CELLS 2 /100WBC (0-0); PLATELET ESTIMATE DECREASED; TOTAL CELLS COUNTED 100
[2021-08-03 05:18] LABS: SMUDGE CELLS 2+
[2021-08-03] MEDS: Insulin Reg/NS 100units/100mL 100 ML IV SCH (05:50)
[2021-08-03] MEDS: levoTHYROXINE 100mcg tablet OGT SCH (07:00)
[2021-08-03] MEDS: famotidine/PF 10 mg/ml inj IV SCH (08:39)
[2021-08-03] MEDS: docusate sodium 100mg/10ml UD cup OGT SCH ×2 (08:40→19:04)
[2021-08-03] MEDS: azithromycin/NS 500mg/250ml 250 ML IV SCH (08:40)
[2021-08-03] MEDS: sertraline 50mg tablet OGT SCH (08:40)
[2021-08-03] MEDS: lactobacillus rhamnosus 10,000 MMU CELLS/CAPSULE PO SCH (08:40)
[2021-08-03] MEDS: heparin, porcine 5000 units/ml vial SQ SCH ×2 (08:40→19:05)
[2021-08-03] MEDS: CefTRIAXone/D5W-Rocephin 1gm 50 ML IV SCH (08:52)
[2021-08-03] MEDS: dexmedetomidin/NS 400mcg/100ml 100 ML IV SCH (10:24)
[2021-08-03] MEDS ORDERED: bisacodyl 10mg suppository rectal RC STA (10:37)
[2021-08-03] MEDS ORDERED: naloxone 0.4 mg/ml inj IV PRN (10:45)
[2021-08-03] MEDS ORDERED: ipratropium/albuterol 3ml nebule NEB PRN (10:45)
[2021-08-03] MEDS ORDERED: racepinephrine 11.25mg/0.5ml nebule NEB PRN (10:45)
[2021-08-03] MEDS ORDERED: CADD PCA waste documentation MC PRN (10:45)
[2021-08-03] MEDS ORDERED: amiodarone 150mg/dext, iso-os 100 ML IV ONE (10:55)
[2021-08-03] MEDS ORDERED: bisacodyl 10mg suppository rectal RC PRN (10:55)
[2021-08-03] MEDS ORDERED: bisacodyl 10mg suppository rectal RC ONE (10:55)
[2021-08-03] MEDS: amiodarone/D5 360MG/200ML BAG 200 ML IV SCH ×3 (11:16→22:55)
[2021-08-03] MEDS: lactobacillus rhamnosus 10,000 MMU CELLS/CAPSULE OGT SCH (19:04)
[2021-08-03] MEDS: famotidine 20mg tablet OGT SCH (19:05)
[2021-08-03] MEDS: atorvastatin 10mg tablet OGT SCH (19:05)
[2021-08-03] MEDS: insulin glargine (Lantus) pen - multi-dose SQ SCH (21:33)
[2021-08-04] VITALS (22 sets, daily range): BP systolic 139–175; BP diastolic 70–96
[2021-08-04] MEDS: dexmedetomidin/NS 400mcg/100ml 100 ML IV SCH (01:06)
[2021-08-04] MEDS: mineral oil/petrolatum ophthal oint EACHEYE SCH ×4 (02:00→18:30)
[2021-08-04] MEDS: methylPREDNISolone sod succ/PF 40mg inj. IV SCH ×4 (02:00→20:31)
[2021-08-04] MEDS: valproate sod 250mg/5ml UD oral syrup CORPAK SCH ×4 (02:00→20:31)
[2021-08-04] MEDS: ipratropium/albuterol 3ml nebule NEB SCH ×4 (02:31→20:08)
[2021-08-04 03:03] LABS: EOSINOPHILS % (AUTO) 0 % (0-6); MONOCYTES # (AUTO) 1.8 X10'3 (0-0.9); NEUTROPHILS % (AUTO) 20.5 % (42-75); RED CELL DISTRIBUTION WIDTH 16.4 % (11.5-14.5)
[2021-08-04 03:06] LABS: BASOPHILS % (AUTO) 0 % (0-1); HEMATOCRIT 43.4 % (42.0-52.0); HEMOGLOBIN 13.8 g/dl (14.0-17.9); LYMPHOCYTES # (AUTO) 33.4 X10'3 (1.1-4.8); LYMPHOCYTES % (AUTO) 75.5 % (21-51); MEAN CORPUSCULAR HEMOGLOBIN 32.8 PG (27.0-31.0); MEAN CORPUSCULAR HGB CONC 31.8 g/dL (33.0-36.5); MEAN CORPUSCULAR VOLUME 103.1 FL (78-98); MEAN PLATELET VOLUME 8.7 FL (7.4-10.4); NEUTROPHILS # (AUTO) 9.1 X10'3 (1.8-7.7); PLATELET COUNT 125 X10'3 (140-440); RED BLOOD COUNT 4.21 X10'6 (4.70-6.10)
[2021-08-04 03:15] LABS: WHITE BLOOD COUNT 44.3 X10'3 (4.5-11.0)
[2021-08-04 03:33] LABS: ALANINE AMINOTRANSFERASE 9 U/L (12-78); ALBUMIN 2.3 G/DL (3.4-5.0); ALBUMIN/GLOBULIN RATIO 0.6 (1.1-1.5); ALKALINE PHOSPHATASE 78 IU/L (46-116); ANION GAP 12 (8-16); ASPARTATE AMINO TRANSFERASE 12 U/L (10-37); BILIRUBIN,TOTAL 0.2 MG/DL (0.1-1.0); BLOOD UREA NITROGEN 79 MG/DL (7-18); BUN/CREATININE RATIO 50.3 (5.4-32.0); CALCIUM 8.2 MG/DL (8.5-10.1); CHLORIDE 114 MMOL/L (99-107); CREATININE 1.57 MG/DL (0.60-1.10); GLUCOSE 152 MG/DL (70-104); MAGNESIUM 2.2 MG/DL (1.5-2.4); PHOSPHORUS 4.8 MG/DL (2.3-4.5); SODIUM 150 MMOL/L (135-145); TOTAL CARBON DIOXIDE 24.4 MMOL/L (24-32); TOTAL PROTEIN 6.1 G/DL (6.4-8.2); eGFR 44 ML/MIN
[2021-08-04 03:48] LABS: POTASSIUM 6.1 MMOL/L (3.5-5.1)
[2021-08-04] MEDS: sodium chloride 0.45% 1,000 ML IV SCH ×3 (04:20→12:51)
[2021-08-04] MEDS: amiodarone/D5 360MG/200ML BAG 200 ML IV SCH ×4 (04:55→22:55)
[2021-08-04 06:12] LABS: TOTAL CELLS COUNTED 100
[2021-08-04 06:13] LABS: ANISOCYTOSIS 1+; PLATELET ESTIMATE DECREASED
[2021-08-04] MEDS: levoTHYROXINE 100mcg tablet OGT SCH (07:13)
[2021-08-04] MEDS: sertraline 50mg tablet OGT SCH (08:02)
[2021-08-04] MEDS: lactobacillus rhamnosus 10,000 MMU CELLS/CAPSULE OGT SCH ×2 (08:02→20:31)
[2021-08-04] MEDS: famotidine 20mg tablet OGT SCH ×2 (08:02→20:31)
[2021-08-04] MEDS: CefTRIAXone/D5W-Rocephin 1gm 50 ML IV SCH (08:03)
[2021-08-04] MEDS: azithromycin/NS 500mg/250ml 250 ML IV SCH (08:03)
[2021-08-04] MEDS: heparin, porcine 5000 units/ml vial SQ SCH ×2 (08:03→20:31)
[2021-08-04] MEDS: docusate sodium 100mg/10ml UD cup OGT SCH ×2 (08:04→20:32)
[2021-08-04 10:05] LABS: ALBUMIN 2.4 G/DL (3.4-5.0); ANION GAP 8 (8-16); BLOOD UREA NITROGEN 77 MG/DL (7-18); BUN/CREATININE RATIO 47.8 (5.4-32.0); CALCIUM 8.4 MG/DL (8.5-10.1); CHLORIDE 112 MMOL/L (99-107); CREATININE 1.61 MG/DL (0.60-1.10); GLUCOSE 217 MG/DL (70-104); POTASSIUM 5.9 MMOL/L (3.5-5.1); SODIUM 147 MMOL/L (135-145); TOTAL CARBON DIOXIDE 26.7 MMOL/L (24-32); eGFR 42 ML/MIN
--- NOTE | 2021-08-04 11:41 | NUR ---
F/u 08/04: Pt extubated yesterday advanced to pureed/thin liquid diet per MICROSTRATEGY REPORTS DEVELOPER recs however concerns this AM regarding swallow safety and breakfast tray held per RN. Legal Entity Controller requests MICROSTRATEGY REPORTS DEVELOPER return this AM at rounds. Will monitor for PO diet tolerance and nutrition support needs if continued unsafe PO. Rec: 1. Continue pureed/thin liquids diet per MICROSTRATEGY REPORTS DEVELOPER recs 2. monitor for ONS needs pending further PO hx 3. IF unsafe for PO intake consider NG feeds to optimize nutrition status 4. routine bowel care 5. DM ed once appropriate; hx T2DM A1C 8.5% Addendum: 08/04/21 at [address] Amended: Links added.
[2021-08-04] MEDS: insulin regular, human U-100 3ml vial - multi-dose SQ SCH (12:36)
[2021-08-04] MEDS ORDERED: NUT.TX.GLUC.INTOLER,LAC-FR,SOY (GLUCERNA) 237 ML PO SCH (13:00)
[2021-08-04] MEDS: insulin Lispro (HumaLOG) vial - multi-dose SQ SCH (18:03)
[2021-08-04] MEDS: carvedilol 6.25mg tablet PO SCH (20:31)
[2021-08-04] MEDS: furosemide 40mg tablet PO SCH (20:31)
[2021-08-04] MEDS: gabapentin 300mg capsule PO SCH (20:31)
[2021-08-04] MEDS: spironolactone 25 MG tablet PO SCH (20:31)
[2021-08-04] MEDS: atorvastatin 10mg tablet OGT SCH (20:32)
[2021-08-04] MEDS: insulin glargine (Lantus) pen - multi-dose SQ SCH (21:44)
[2021-08-05] VITALS (19 sets, daily range): BP systolic 108–165; BP diastolic 63–99
[2021-08-05] MEDS: sodium chloride 0.45% 1,000 ML IV SCH ×2 (00:20→07:48)
[2021-08-05] MEDS: mineral oil/petrolatum ophthal oint EACHEYE SCH ×4 (02:00→20:00)
[2021-08-05] MEDS: ipratropium/albuterol 3ml nebule NEB SCH ×4 (02:21→21:03)
[2021-08-05] MEDS: methylPREDNISolone sod succ/PF 40mg inj. IV SCH ×2 (02:38→07:45)
[2021-08-05] MEDS: valproate sod 250mg/5ml UD oral syrup CORPAK SCH ×2 (02:38→07:45)
[2021-08-05 03:26] LABS: EOSINOPHILS % (AUTO) 0 % (0-6)
[2021-08-05 03:29] LABS: BASOPHILS % (AUTO) 0.1 % (0-1); HEMATOCRIT 44.7 % (42.0-52.0); HEMOGLOBIN 14.2 g/dl (14.0-17.9); LYMPHOCYTES # (AUTO) 36.3 X10'3 (1.1-4.8); LYMPHOCYTES % (AUTO) 74.7 % (21-51); MEAN CORPUSCULAR HEMOGLOBIN 32.7 PG (27.0-31.0); MEAN CORPUSCULAR HGB CONC 31.8 g/dL (33.0-36.5); MEAN PLATELET VOLUME 8.6 FL (7.4-10.4); MONOCYTES # (AUTO) 2.3 X10'3 (0-0.9); MONOCYTES % (AUTO) 4.8 % (2-12); NEUTROPHILS # (AUTO) 9.9 X10'3 (1.8-7.7); NEUTROPHILS % (AUTO) 20.4 % (42-75); PLATELET COUNT 128 X10'3 (140-440); RED BLOOD COUNT 4.34 X10'6 (4.70-6.10); RED CELL DISTRIBUTION WIDTH 15.8 % (11.5-14.5)
[2021-08-05 03:37] LABS: ALANINE AMINOTRANSFERASE 7 U/L (12-78); ALBUMIN 2.4 G/DL (3.4-5.0); ALBUMIN/GLOBULIN RATIO 0.7 (1.1-1.5); ALKALINE PHOSPHATASE 84 IU/L (46-116); ANION GAP 8 (8-16); ASPARTATE AMINO TRANSFERASE 18 U/L (10-37); BILIRUBIN,TOTAL 0.3 MG/DL (0.1-1.0); BLOOD UREA NITROGEN 76 MG/DL (7-18); BUN/CREATININE RATIO 48.7 (5.4-32.0); CALCIUM 8.4 MG/DL (8.5-10.1); CHLORIDE 109 MMOL/L (99-107); CREATININE 1.56 MG/DL (0.60-1.10); GLUCOSE 136 MG/DL (70-104); MAGNESIUM 2.1 MG/DL (1.5-2.4); PHOSPHORUS 5.6 MG/DL (2.3-4.5); SODIUM 143 MMOL/L (135-145); TOTAL CARBON DIOXIDE 25.8 MMOL/L (24-32); eGFR 44 ML/MIN
[2021-08-05 04:22] LABS: WHITE BLOOD COUNT 48.5 X10'3 (4.5-11.0)
[2021-08-05] MEDS: amiodarone/D5 360MG/200ML BAG 200 ML IV SCH ×2 (04:32→09:13)
[2021-08-05 05:43] LABS: PLATELET ESTIMATE DECREASED; SCHISTOCYTES FEW; TOTAL CELLS COUNTED 100
[2021-08-05 05:44] LABS: ANISOCYTOSIS 1+; SMUDGE CELLS 1+
[2021-08-05] MEDS: CefTRIAXone/D5W-Rocephin 1gm 50 ML IV SCH (07:45)
[2021-08-05] MEDS: gabapentin 300mg capsule PO SCH ×2 (07:46→20:11)
[2021-08-05] MEDS: lactobacillus rhamnosus 10,000 MMU CELLS/CAPSULE OGT SCH ×2 (07:46→20:13)
[2021-08-05] MEDS: levoTHYROXINE 100mcg tablet OGT SCH (07:46)
[2021-08-05] MEDS: famotidine 20mg tablet OGT SCH ×2 (07:46→20:12)
[2021-08-05] MEDS: carvedilol 6.25mg tablet PO SCH ×2 (07:47→20:12)
[2021-08-05] MEDS: sertraline 50mg tablet OGT SCH (07:47)
[2021-08-05] MEDS: furosemide 40mg tablet PO SCH ×2 (07:47→20:16)
[2021-08-05] MEDS: spironolactone 25 MG tablet PO SCH (07:47)
[2021-08-05] MEDS: heparin, porcine 5000 units/ml vial SQ SCH (07:48)
[2021-08-05] MEDS ORDERED: non-formulary drug (Omeprazole 1 CAP) PO SCH (08:00)
[2021-08-05] MEDS: docusate sodium 100mg/10ml UD cup OGT SCH ×2 (08:00→20:00)
[2021-08-05] MEDS: azithromycin/NS 500mg/250ml 250 ML IV SCH (09:12)
[2021-08-05] MEDS: insulin Lispro (HumaLOG) vial - multi-dose SQ SCH (09:20)
--- NOTE | 2021-08-05 12:33 | NUR ---
Malnutrition Consult: Pt advanced to MM5/thin diet per FIRST GRADE TEACHER this AM w/ hx prior esophageal dilation per FIRST GRADE TEACHER note. PO 25% dinner only yesterday however PO 75% breakfast this AM improving. Per RN; pt BM yesterday 08/04 following prior 7 days constipation. No BM documentation though is receiving routine colace and PRN dulcolax 08/04. Pt reports unsure of wt loss and decreased intake past week per RN Malnutrition Screen. Pt was recently intubated and receiving tube feeds during this time w/ trace edema and no significant weakness noted; lacks minimum malnutrition criteria. Will continue to monitor for PO trends and further nutrition intervention needs this admit. Rec: 1. Continue MM5/thin liquids diet per FIRST GRADE TEACHER recs; consider carb controlled restriction if PO improves given T2DM hx 2. monitor for ONS needs pending further PO hx 3. routine bowel care; LBM 08/04 per RN pending stool documentation 4. weekly wts 5. DM ed once appropriate; hx T2DM A1C 8.5% Addendum: 08/05/21 at [address] Amended: Links added.
--- NOTE | 2021-08-05 17:20 | NUR ---
Transfer from the ICU Pt. oriented to PCU; Call light within reach; Pt. safe and stable with no complaints of pain. VSS
--- NOTE | 2021-08-05 18:31 | NUR ---
Problems reprioritized. Patient report given Mitchell CLAROS, questions answered & plan of care reviewed with Gordon CLAROS.
[2021-08-05] MEDS: apixaban 5mg tablet PO SCH (20:14)
[2021-08-05] MEDS: atorvastatin 10mg tablet OGT SCH (20:15)
[2021-08-05] MEDS: divalproex sodium 500mg tablet.DR PO SCH (20:16)
[2021-08-05] MEDS: insulin glargine (Lantus) pen - multi-dose SQ SCH (23:20)
--- NOTE | 2021-08-06 01:15 | NUR ---
Patient in room PCU 3028. I have received report from Sepideh CLAROS and had the opportunity to ask questions and assume patient care.
--- NOTE | 2021-08-06 01:16 | NUR ---
ADRIAN computer had issues with scanner, certain medications administered through eMAR due to scanner not recognizing them
[2021-08-06 02:00] VITALS: BP 121/76
[2021-08-06] MEDS: mineral oil/petrolatum ophthal oint EACHEYE SCH ×4 (02:00→20:00)
[2021-08-06] MEDS: ipratropium/albuterol 3ml nebule NEB SCH ×4 (02:28→21:11)
[2021-08-06 06:00] VITALS: BP 127/54
--- NOTE | 2021-08-06 06:10 | NUR ---
Patient in room PCU 3028. I have received report from Gordon CLAROS and had the opportunity to ask questions and assume patient care.
--- NOTE | 2021-08-06 06:32 | NUR ---
Problems reprioritized. Patient report given, questions answered & plan of care reviewed with Eve CLAROS.
[2021-08-06 06:35] LABS: BASOPHILS # (AUTO) 0.1 X10'3 (0-0.2); BASOPHILS % (AUTO) 0.1 % (0-1); EOSINOPHILS # (AUTO) 0.1 X10'3 (0-0.9); EOSINOPHILS % (AUTO) 0.2 % (0-6); HEMATOCRIT 48.4 % (42.0-52.0); HEMOGLOBIN 15.2 g/dl (14.0-17.9); LYMPHOCYTES % (AUTO) 79.8 % (21-51); MEAN CORPUSCULAR HEMOGLOBIN 32.8 PG (27.0-31.0); MEAN CORPUSCULAR HGB CONC 31.4 g/dL (33.0-36.5); MEAN CORPUSCULAR VOLUME 104.3 FL (78-98); MONOCYTES # (AUTO) 2.7 X10'3 (0-0.9); MONOCYTES % (AUTO) 5.1 % (2-12); NEUTROPHILS # (AUTO) 7.8 X10'3 (1.8-7.7); NEUTROPHILS % (AUTO) 14.8 % (42-75); PLATELET COUNT 115 X10'3 (140-440); RED BLOOD COUNT 4.64 X10'6 (4.70-6.10); RED CELL DISTRIBUTION WIDTH 16.1 % (11.5-14.5)
[2021-08-06 06:43] LABS: WHITE BLOOD COUNT 52.7 X10'3 (4.5-11.0)
[2021-08-06 06:56] LABS: ALANINE AMINOTRANSFERASE 12 U/L (12-78); ALBUMIN 2.4 G/DL (3.4-5.0); ALBUMIN/GLOBULIN RATIO 0.6 (1.1-1.5); ALKALINE PHOSPHATASE 90 IU/L (46-116); ANION GAP 9 (8-16); BILIRUBIN,TOTAL 0.4 MG/DL (0.1-1.0); BLOOD UREA NITROGEN 85 MG/DL (7-18); BUN/CREATININE RATIO 53.1 (5.4-32.0); CALCIUM 7.9 MG/DL (8.5-10.1); CHLORIDE 108 MMOL/L (99-107); GLUCOSE 143 MG/DL (70-104); MAGNESIUM 2.2 MG/DL (1.5-2.4); SODIUM 140 MMOL/L (135-145); TOTAL CARBON DIOXIDE 22.6 MMOL/L (24-32); TOTAL PROTEIN 6.4 G/DL (6.4-8.2); TRIGLYCERIDES 135 MG/DL (20-135); eGFR 43 ML/MIN
[2021-08-06 07:03] LABS: ASPARTATE AMINO TRANSFERASE 28 U/L (10-37); PHOSPHORUS 5.6 MG/DL (2.3-4.5)
[2021-08-06] MEDS: atorvastatin 10mg tablet OGT SCH (08:34)
[2021-08-06] MEDS: divalproex sodium 500mg tablet.DR PO SCH ×2 (08:35→20:18)
[2021-08-06] MEDS: CefTRIAXone/D5W-Rocephin 1gm 50 ML IV SCH (08:35)
[2021-08-06] MEDS: apixaban 5mg tablet PO SCH ×2 (08:36→20:29)
[2021-08-06] MEDS: docusate sodium 100mg/10ml UD cup OGT SCH ×2 (08:36→20:18)
[2021-08-06] MEDS: gabapentin 300mg capsule PO SCH ×2 (08:36→20:18)
[2021-08-06] MEDS: carvedilol 6.25mg tablet PO SCH ×2 (08:36→20:19)
[2021-08-06] MEDS: famotidine 20mg tablet OGT SCH ×2 (08:38→20:18)
[2021-08-06] MEDS: sertraline 50mg tablet OGT SCH (08:38)
[2021-08-06] MEDS: furosemide 40mg tablet PO SCH ×2 (08:39→20:19)
[2021-08-06] MEDS: lactobacillus rhamnosus 10,000 MMU CELLS/CAPSULE OGT SCH ×2 (08:39→20:19)
[2021-08-06] MEDS: levoTHYROXINE 100mcg tablet OGT SCH (09:04)
[2021-08-06 10:02] LABS: ANISOCYTOSIS 1+; PLATELET ESTIMATE DECREASED; SMUDGE CELLS 1+; TOTAL CELLS COUNTED 100
[2021-08-06 11:00] VITALS: BP 115/69
[2021-08-06] MEDS: azithromycin/NS 500mg/250ml 250 ML IV SCH (11:16)
[2021-08-06 15:00] VITALS: BP 127/76
[2021-08-06] MEDS: insulin Lispro (HumaLOG) vial - multi-dose SQ SCH ×2 (15:45→20:48)
--- NOTE | 2021-08-06 18:22 | NUR ---
Patient in room PCU 3028. I have received report from HYACINTH Prado and had the opportunity to ask questions and assume patient care.
--- NOTE | 2021-08-06 18:22 | NUR ---
Problems reprioritized. Patient report given, questions answered & plan of care reviewed with Opal CLAROS, patient stable at transfer of care.
[2021-08-06] MEDS: insulin glargine (Lantus) pen - multi-dose SQ SCH (23:05)
[2021-08-06] MEDS: acetaminophen 325mg tablet OGT PRN (23:11)
[2021-08-07] MEDS: mineral oil/petrolatum ophthal oint EACHEYE SCH ×3 (02:00→20:00)
[2021-08-07] MEDS: ipratropium/albuterol 3ml nebule NEB SCH ×4 (02:10→20:06)
[2021-08-07 06:00] VITALS: BP 126/78
--- NOTE | 2021-08-07 06:07 | NUR ---
Patient in room PCU 3028. I have received report from Opal CLAROS and had the opportunity to ask questions and assume patient care.
--- NOTE | 2021-08-07 06:10 | NUR ---
Problems reprioritized. Patient report given, questions answered & plan of care reviewed with HYACINTH Prado.
[2021-08-07 07:20] LABS: HEMOGLOBIN 15.6 g/dl (14.0-17.9)
[2021-08-07 07:24] LABS: BASOPHILS % (AUTO) 0.1 % (0-1); EOSINOPHILS # (AUTO) 0.2 X10'3 (0-0.9); EOSINOPHILS % (AUTO) 0.3 % (0-6); HEMATOCRIT 47.5 % (42.0-52.0); LYMPHOCYTES # (AUTO) 48.7 X10'3 (1.1-4.8); LYMPHOCYTES % (AUTO) 80.4 % (21-51); MEAN CORPUSCULAR HEMOGLOBIN 33.4 PG (27.0-31.0); MEAN CORPUSCULAR HGB CONC 32.8 g/dL (33.0-36.5); MEAN CORPUSCULAR VOLUME 101.9 FL (78-98); MEAN PLATELET VOLUME 8.5 FL (7.4-10.4); MONOCYTES % (AUTO) 3.3 % (2-12); NEUTROPHILS # (AUTO) 9.6 X10'3 (1.8-7.7); NEUTROPHILS % (AUTO) 15.9 % (42-75); PLATELET COUNT 155 X10'3 (140-440); RED BLOOD COUNT 4.66 X10'6 (4.70-6.10); RED CELL DISTRIBUTION WIDTH 15.8 % (11.5-14.5)
[2021-08-07 07:27] LABS: ALANINE AMINOTRANSFERASE 15 U/L (12-78); ALBUMIN 2.5 G/DL (3.4-5.0); ALBUMIN/GLOBULIN RATIO 0.6 (1.1-1.5); ALKALINE PHOSPHATASE 89 IU/L (46-116); ANION GAP 9 (8-16); ASPARTATE AMINO TRANSFERASE 23 U/L (10-37); BILIRUBIN,TOTAL 0.3 MG/DL (0.1-1.0); BLOOD UREA NITROGEN 86 MG/DL (7-18); BUN/CREATININE RATIO 48.9 (5.4-32.0); CALCIUM 7.9 MG/DL (8.5-10.1); CHLORIDE 107 MMOL/L (99-107); CREATININE 1.76 MG/DL (0.60-1.10); MAGNESIUM 2.4 MG/DL (1.5-2.4); PHOSPHORUS 7.5 MG/DL (2.3-4.5); POTASSIUM 5.8 MMOL/L (3.5-5.1); SODIUM 142 MMOL/L (135-145); TOTAL CARBON DIOXIDE 25.7 MMOL/L (24-32); TOTAL PROTEIN 6.4 G/DL (6.4-8.2); eGFR 38 ML/MIN
[2021-08-07 07:31] LABS: GLUCOSE 45 MG/DL (70-104); WHITE BLOOD COUNT 60.5 X10'3 (4.5-11.0)
[2021-08-07] MEDS: dextrose 50%-water 50ml dispensing syringe IV PRN ×2 (07:44→08:04)
[2021-08-07 08:00] LABS: PLATELET ESTIMATE NORMAL; SMUDGE CELLS 2+; TOTAL CELLS COUNTED 100
[2021-08-07] MEDS: divalproex sodium 500mg tablet.DR PO SCH ×2 (08:16→20:53)
[2021-08-07] MEDS: gabapentin 300mg capsule PO SCH ×2 (08:16→20:53)
[2021-08-07] MEDS: atorvastatin 10mg tablet OGT SCH (08:16)
[2021-08-07] MEDS: CefTRIAXone/D5W-Rocephin 1gm 50 ML IV SCH (08:18)
[2021-08-07] MEDS: levoTHYROXINE 100mcg tablet OGT SCH (08:18)
[2021-08-07] MEDS: sertraline 50mg tablet OGT SCH (08:18)
[2021-08-07] MEDS: lactobacillus rhamnosus 10,000 MMU CELLS/CAPSULE OGT SCH ×2 (08:18→20:53)
[2021-08-07] MEDS: furosemide 40mg tablet PO SCH ×2 (08:19→20:53)
[2021-08-07] MEDS: carvedilol 6.25mg tablet PO SCH ×2 (08:19→20:53)
[2021-08-07] MEDS: apixaban 5mg tablet PO SCH ×2 (08:19→20:53)
[2021-08-07] MEDS: famotidine 20mg tablet OGT SCH ×2 (08:19→20:53)
[2021-08-07] MEDS: docusate sodium 100mg/10ml UD cup OGT SCH ×2 (08:36→20:00)
[2021-08-07 11:00] VITALS: BP 151/89
[2021-08-07 11:23] LABS: GLUCOSE 307 MG/DL (70-104)
[2021-08-07 15:00] VITALS: BP 170/75
--- NOTE | 2021-08-07 17:40 | NUR ---
Paged Dr. Barraza regarding patients BG trends and PBNP result. PAGER ID: [phone] MESSAGE: [id number], Juanjo Baker. BG @[id number], @1200 270, @1700 276. Also, PBNP 1536. Eve [facility] 0250.
[2021-08-07 18:00] VITALS: BP 170/93
--- NOTE | 2021-08-07 18:54 | NUR ---
Problems reprioritized. Patient report given, questions answered & plan of care reviewed with Trinity CLAROS, patient stable at transfer of care.
[2021-08-07] MEDS: insulin glargine (Lantus) pen - multi-dose SQ SCH (21:13)
[2021-08-07 22:00] VITALS: BP 125/80
[2021-08-08 02:00] VITALS: BP 128/70
[2021-08-08] MEDS: mineral oil/petrolatum ophthal oint EACHEYE SCH ×4 (02:00→20:00)
[2021-08-08] MEDS: ipratropium/albuterol 3ml nebule NEB SCH ×4 (02:34→20:28)
[2021-08-08 06:39] LABS: HEMATOCRIT 50.1 % (42.0-52.0); HEMOGLOBIN 16.2 g/dl (14.0-17.9); MEAN CORPUSCULAR HGB CONC 32.3 g/dL (33.0-36.5)
[2021-08-08 06:42] LABS: MEAN CORPUSCULAR HEMOGLOBIN 33.2 PG (27.0-31.0); MEAN CORPUSCULAR VOLUME 102.7 FL (78-98); MEAN PLATELET VOLUME 8.8 FL (7.4-10.4); PLATELET COUNT 170 X10'3 (140-440); RED BLOOD COUNT 4.88 X10'6 (4.70-6.10); RED CELL DISTRIBUTION WIDTH 15.1 % (11.5-14.5)
[2021-08-08 06:59] LABS: WHITE BLOOD COUNT 55.2 X10'3 (4.5-11.0)
[2021-08-08 07:09] LABS: ALANINE AMINOTRANSFERASE 19 U/L (12-78); ALBUMIN 2.6 G/DL (3.4-5.0); ALBUMIN/GLOBULIN RATIO 0.7 (1.1-1.5); ALKALINE PHOSPHATASE 108 IU/L (46-116); ANION GAP 7 (8-16); ASPARTATE AMINO TRANSFERASE 16 U/L (10-37); BILIRUBIN,TOTAL 0.4 MG/DL (0.1-1.0); BLOOD UREA NITROGEN 94 MG/DL (7-18); BUN/CREATININE RATIO 44.1 (5.4-32.0); CALCIUM 8.3 MG/DL (8.5-10.1); CHLORIDE 101 MMOL/L (99-107); CREATININE 2.13 MG/DL (0.60-1.10); GLUCOSE 278 MG/DL (70-104); MAGNESIUM 2.4 MG/DL (1.5-2.4); PHOSPHORUS 6.7 MG/DL (2.3-4.5); POTASSIUM 5.3 MMOL/L (3.5-5.1); SODIUM 138 MMOL/L (135-145); TOTAL CARBON DIOXIDE 29.9 MMOL/L (24-32); TOTAL PROTEIN 6.4 G/DL (6.4-8.2); eGFR 31 ML/MIN
[2021-08-08 07:25] LABS: TOTAL CELLS COUNTED 100
[2021-08-08 07:27] LABS: PLATELET ESTIMATE NORMAL
[2021-08-08 07:28] LABS: ANISOCYTOSIS 1+; SMUDGE CELLS 2+
[2021-08-08] MEDS: docusate sodium 100mg/10ml UD cup OGT SCH ×2 (08:00→20:00)
[2021-08-08] MEDS: CefTRIAXone/D5W-Rocephin 1gm 50 ML IV SCH ×2 (08:00→09:47)
[2021-08-08] MEDS: sertraline 50mg tablet OGT SCH (09:46)
[2021-08-08] MEDS: lactobacillus rhamnosus 10,000 MMU CELLS/CAPSULE OGT SCH ×2 (09:46→20:15)
[2021-08-08] MEDS: famotidine 20mg tablet OGT SCH ×2 (09:46→20:15)
[2021-08-08] MEDS: carvedilol 6.25mg tablet PO SCH ×2 (09:47→20:15)
[2021-08-08] MEDS: levoTHYROXINE 100mcg tablet OGT SCH (09:47)
[2021-08-08] MEDS: furosemide 40mg tablet PO SCH ×2 (09:47→20:15)
[2021-08-08] MEDS: gabapentin 300mg capsule PO SCH ×2 (09:47→20:15)
[2021-08-08] MEDS: divalproex sodium 500mg tablet.DR PO SCH ×2 (09:48→20:15)
[2021-08-08] MEDS: apixaban 5mg tablet PO SCH ×2 (09:48→20:15)
[2021-08-08] MEDS: insulin Lispro (HumaLOG) vial - multi-dose SQ SCH ×2 (10:13→13:37)
[2021-08-08 11:00] VITALS: BP 96/54
--- NOTE | 2021-08-08 13:49 | NUR ---
Reassessment: Pt continues on MM5 diet w/ moderate PO intake, avg 39% x 8 meals partially meeting needs. Pt still weak and needs feeder, on 3L NC. Pt could benefit from Ensure Enlive TID to help meet nutrient needs. Upon assessment, pt was sleeping though was able to wake but fell back asleep quickly, unable to provide DM education at this time, will try again at later time. LBM 08/07 receiving routine colace. Will continue to monitor. Rec: 1. Continue MM5/thin liquids diet per ORDER SELECTOR recs; consider carb controlled/renal restriction if PO improves given T2DM and CKD hx 2. Ensure Enlive TID; pending MD verification 3. routine bowel care 4. weekly wts 5. DM ed once appropriate; hx T2DM A1C 8.5% Addendum: 08/08/21 at [address] Amended: Links added.
[2021-08-08 15:00] VITALS: BP 127/77
[2021-08-08 18:00] VITALS: BP 155/62
--- NOTE | 2021-08-08 18:10 | NUR ---
Problems reprioritized. Patient report given, questions answered & plan of care reviewed with Trinity CLAROS.
[2021-08-08] MEDS: insulin glargine (Lantus) pen - multi-dose SQ SCH (20:21)
[2021-08-08] MEDS: atorvastatin 10mg tablet OGT SCH (20:22)
[2021-08-08 22:00] VITALS: BP 145/45
[2021-08-09 02:00] VITALS: BP 121/62
[2021-08-09] MEDS: mineral oil/petrolatum ophthal oint EACHEYE SCH (02:00)
[2021-08-09] MEDS: ipratropium/albuterol 3ml nebule NEB SCH ×4 (03:00→20:50)
--- NOTE | 2021-08-09 06:06 | NUR ---
Patient in room U 3028. I have received report from Trinity CLAROS and had the opportunity to ask questions and assume patient care. . Patient resting in bed in no acute distress.
[2021-08-09 06:34] LABS: BASOPHILS % (AUTO) 0.1 % (0-1); EOSINOPHILS # (AUTO) 0.4 X10'3 (0-0.9); EOSINOPHILS % (AUTO) 0.8 % (0-6); HEMOGLOBIN 14.5 g/dl (14.0-17.9); LYMPHOCYTES % (AUTO) 72.1 % (21-51); NEUTROPHILS # (AUTO) 11.8 X10'3 (1.8-7.7)
[2021-08-09 06:39] LABS: BASOPHILS # (AUTO) 0.1 X10'3 (0-0.2); HEMATOCRIT 45.2 % (42.0-52.0); MEAN CORPUSCULAR HEMOGLOBIN 32.8 PG (27.0-31.0); MEAN CORPUSCULAR VOLUME 102.5 FL (78-98); MEAN PLATELET VOLUME 9.3 FL (7.4-10.4); MONOCYTES # (AUTO) 2.1 X10'3 (0-0.9); PLATELET COUNT 164 X10'3 (140-440); RED BLOOD COUNT 4.41 X10'6 (4.70-6.10)
[2021-08-09 07:00] VITALS: BP 130/51
[2021-08-09 07:26] LABS: ALANINE AMINOTRANSFERASE 13 U/L (12-78); ALBUMIN 2.5 G/DL (3.4-5.0); ALBUMIN/GLOBULIN RATIO 0.7 (1.1-1.5); ALKALINE PHOSPHATASE 91 IU/L (46-116); ANION GAP 9 (8-16); ASPARTATE AMINO TRANSFERASE 19 U/L (10-37); BILIRUBIN,TOTAL 0.5 MG/DL (0.1-1.0); BLOOD UREA NITROGEN 85 MG/DL (7-18); BUN/CREATININE RATIO 45.7 (5.4-32.0); CALCIUM 8.1 MG/DL (8.5-10.1); CHLORIDE 105 MMOL/L (99-107); CREATININE 1.86 MG/DL (0.60-1.10); GLUCOSE 171 MG/DL (70-104); MAGNESIUM 2.2 MG/DL (1.5-2.4); PHOSPHORUS 5.3 MG/DL (2.3-4.5); POTASSIUM 5.5 MMOL/L (3.5-5.1); SODIUM 142 MMOL/L (135-145); TOTAL CARBON DIOXIDE 28.3 MMOL/L (24-32); TOTAL PROTEIN 6.2 G/DL (6.4-8.2); eGFR 36 ML/MIN
[2021-08-09] MEDS: gabapentin 300mg capsule PO SCH ×2 (07:41→20:37)
[2021-08-09] MEDS: docusate sodium 100mg/10ml UD cup OGT SCH ×2 (07:41→20:00)
[2021-08-09] MEDS: lactobacillus rhamnosus 10,000 MMU CELLS/CAPSULE OGT SCH ×2 (07:41→20:37)
[2021-08-09] MEDS: carvedilol 6.25mg tablet PO SCH ×2 (07:41→20:37)
[2021-08-09] MEDS: apixaban 5mg tablet PO SCH ×2 (07:41→20:37)
[2021-08-09] MEDS: furosemide 40mg tablet PO SCH ×2 (07:41→20:37)
[2021-08-09] MEDS: levoTHYROXINE 100mcg tablet OGT SCH (07:41)
[2021-08-09] MEDS: sertraline 50mg tablet OGT SCH (07:42)
[2021-08-09] MEDS: famotidine 20mg tablet OGT SCH ×2 (07:45→20:36)
[2021-08-09] MEDS: divalproex sodium 500mg tablet.DR PO SCH ×2 (07:45→20:38)
[2021-08-09 08:43] LABS: EOSINOPHILS % (MANUAL) 1.5 % (0-6); LYMPHOCYTES % (MANUAL) 78.5 % (21-51); MONOCYTES % (MANUAL) 2.5 % (2-12); NEUTROPHILS % (MANUAL) 17.5 % (42-75); PLATELET ESTIMATE NORMAL; SMUDGE CELLS 3+; TOTAL CELLS COUNTED 200
[2021-08-09 08:44] LABS: ANISOCYTOSIS 1+
[2021-08-09] MEDS: insulin Lispro (HumaLOG) vial - multi-dose SQ SCH ×2 (09:31→13:46)
[2021-08-09 10:38] LABS: WHITE BLOOD COUNT 51.3 X10'3 (4.5-11.0)
[2021-08-09 11:00] VITALS: BP 112/46
--- NOTE | 2021-08-09 11:00 | NUR ---
No PICC RN today to give pt PIV will try again tomorrow. Several attempts yesterday all failed. unable to obtain access . Dr. Barraza aware.
[2021-08-09 15:00] VITALS: BP 170/56
[2021-08-09 18:00] VITALS: BP 139/75
--- NOTE | 2021-08-09 18:01 | NUR ---
1700 BG not done due to primary RN in code blue. PT had tray by the time I got back
--- NOTE | 2021-08-09 18:22 | NUR ---
Problems reprioritized. Patient report given, questions answered & plan of care reviewed with Trinity CLAROS . Pt resting in room in no acute distress.
[2021-08-09] MEDS: insulin glargine (Lantus) pen - multi-dose SQ SCH (20:34)
[2021-08-09] MEDS: atorvastatin 10mg tablet OGT SCH (20:37)
--- NOTE | 2021-08-09 21:28 | NUR ---
Patient resting in bed quietly. Tolerated medications in apple sauce. BS 104. Complaints of right ankle pain, removed socks too tight at the time. Incontinence care provided. Will continue to monitor.
[2021-08-10 02:00] VITALS: BP 122/65
[2021-08-10] MEDS: ipratropium/albuterol 3ml nebule NEB SCH ×4 (02:01→21:44)
[2021-08-10 06:08] LABS: BASOPHILS % (AUTO) 0 % (0-1); HEMOGLOBIN 14.1 g/dl (14.0-17.9)
[2021-08-10 06:11] LABS: EOSINOPHILS # (AUTO) 0.4 X10'3 (0-0.9); EOSINOPHILS % (AUTO) 0.7 % (0-6); HEMATOCRIT 43.5 % (42.0-52.0); LYMPHOCYTES # (AUTO) 36.2 X10'3 (1.1-4.8); LYMPHOCYTES % (AUTO) 69.7 % (21-51); MEAN CORPUSCULAR HEMOGLOBIN 33.1 PG (27.0-31.0); MEAN CORPUSCULAR HGB CONC 32.3 g/dL (33.0-36.5); MEAN CORPUSCULAR VOLUME 102.4 FL (78-98); MEAN PLATELET VOLUME 9.2 FL (7.4-10.4); MONOCYTES # (AUTO) 2.7 X10'3 (0-0.9); MONOCYTES % (AUTO) 5.2 % (2-12); NEUTROPHILS # (AUTO) 12.7 X10'3 (1.8-7.7); NEUTROPHILS % (AUTO) 24.4 % (42-75); PLATELET COUNT 179 X10'3 (140-440); RED BLOOD COUNT 4.25 X10'6 (4.70-6.10)
[2021-08-10 06:19] LABS: ALANINE AMINOTRANSFERASE 10 U/L (12-78); ALBUMIN 2.5 G/DL (3.4-5.0); ALBUMIN/GLOBULIN RATIO 0.7 (1.1-1.5); ALKALINE PHOSPHATASE 91 IU/L (46-116); ANION GAP 5 (8-16); ASPARTATE AMINO TRANSFERASE 20 U/L (10-37); BILIRUBIN,TOTAL 0.5 MG/DL (0.1-1.0); BLOOD UREA NITROGEN 77 MG/DL (7-18); BUN/CREATININE RATIO 42.1 (5.4-32.0); CALCIUM 8.2 MG/DL (8.5-10.1); CHLORIDE 105 MMOL/L (99-107); CREATININE 1.83 MG/DL (0.60-1.10); GLUCOSE 101 MG/DL (70-104); PHOSPHORUS 4.7 MG/DL (2.3-4.5); POTASSIUM 5.6 MMOL/L (3.5-5.1); SODIUM 141 MMOL/L (135-145); TOTAL CARBON DIOXIDE 30.6 MMOL/L (24-32); TOTAL PROTEIN 6.3 G/DL (6.4-8.2); eGFR 36 ML/MIN
[2021-08-10 07:41] LABS: TOTAL CELLS COUNTED 100
[2021-08-10 07:42] LABS: PLATELET ESTIMATE NORMAL; SMUDGE CELLS 2+
[2021-08-10] MEDS: lactose-reduced food (Ensure Enlive) - 237ml bottle PO SCH ×3 (08:00→18:00)
[2021-08-10] MEDS ORDERED: lactose-reduced food (Ensure Enlive) - 237ml bottle PO SCH (08:00)
[2021-08-10] MEDS: famotidine 20mg tablet OGT SCH ×2 (08:42→22:02)
[2021-08-10] MEDS: levoTHYROXINE 100mcg tablet OGT SCH (08:42)
[2021-08-10] MEDS: gabapentin 300mg capsule PO SCH ×2 (08:42→22:03)
[2021-08-10] MEDS: lactobacillus rhamnosus 10,000 MMU CELLS/CAPSULE OGT SCH ×2 (08:42→22:03)
[2021-08-10] MEDS: docusate sodium 100mg/10ml UD cup OGT SCH ×3 (08:42→22:04)
[2021-08-10] MEDS: apixaban 5mg tablet PO SCH ×2 (08:42→22:02)
[2021-08-10] MEDS: divalproex sodium 500mg tablet.DR PO SCH ×2 (08:42→22:03)
[2021-08-10] MEDS: carvedilol 6.25mg tablet PO SCH ×2 (08:43→22:03)
[2021-08-10] MEDS: furosemide 40mg tablet PO SCH ×2 (08:43→22:04)
[2021-08-10] MEDS: sertraline 50mg tablet OGT SCH (08:43)
[2021-08-10] MEDS: insulin Lispro (HumaLOG) vial - multi-dose SQ SCH ×3 (08:47→22:28)
[2021-08-10 11:00] VITALS: BP 112/50
--- NOTE | 2021-08-10 13:37 | NUR ---
PRESSURE ULCER EDUCATION: DEFINITION: A pressure ulcer is an area of skin that breaks down when you stay in one position too long. The constant pressure against the skin reduces the blood flow to that area and the affected tissue dies. CAUSES: "Being bedridden or in a wheelchair "Fragile skin "Having a chronic condition, such as diabetes or vascular disease "Inability to move certain parts of your body without assistance "Older age "Incontinence of urine or stool SYMPTOMS: "A reddened area that DOES NOT turn white when pressed on - this can be the beginning of a pressure ulcer "A blister, deep sore or a crater - these can be advanced pressure ulcers FIRST AID: "Relieve the pressure on this area "Keep the area clean and dry "Call your primary doctor if you see any of the above symptoms "DO NOT massage the area "DO NOT use a donut shaped or ring shaped pillow- these actually interfere with the blood flow and cause complications PREVENTION: "Check for pressure ulcers everyday "Change position at least every two hours to relieve pressure "Use items that help relieve pressure- pillows, sheepskin, foam padding, and powders. "Keep skin clean and dry "Eat healthy well balanced meals "Exercise daily IF YOU SEE ANY OF THESE SYMPTOMS WHILE IN THE HOSPITAL - TELL YOUR NURSE IMMEDIATELY. IF YOU SEE ANY OF THESE SYMPTOMS WHILE AT HOME OR HAVE ANY QUESTIONS OR CONCERNS ABOUT PRESSURE ULCERS - CALL YOUR PRIMARY DOCTOR IMMEDIATELY. Addendum: 08/10/21 at 1337 by Trang Olea RN Amended: Links added.
[2021-08-10 15:00] VITALS: BP 124/70
[2021-08-10 18:00] VITALS: BP 132/78
--- NOTE | 2021-08-10 18:35 | NUR ---
Problems reprioritized. Patient report given, questions answered & plan of care reviewed with Nadia CLAROS. Patient resting comfortably in bed and in no acute distress.
[2021-08-10 22:00] VITALS: BP 133/70
[2021-08-10] MEDS: atorvastatin 10mg tablet OGT SCH (22:04)
[2021-08-10] MEDS: acetaminophen 325mg tablet OGT PRN (22:14)
[2021-08-10] MEDS: insulin glargine (Lantus) pen - multi-dose SQ SCH (23:45)
[2021-08-11 02:00] VITALS: BP 97/51
[2021-08-11] MEDS: ipratropium/albuterol 3ml nebule NEB SCH ×4 (04:28→21:07)
[2021-08-11 05:38] LABS: EOSINOPHILS # (AUTO) 0.2 X10'3 (0-0.9); MEAN CORPUSCULAR HEMOGLOBIN 32.6 PG (27.0-31.0)
[2021-08-11 05:40] LABS: BASOPHILS % (AUTO) 0.1 % (0-1); EOSINOPHILS % (AUTO) 0.3 % (0-6); HEMATOCRIT 42.5 % (42.0-52.0); HEMOGLOBIN 13.8 g/dl (14.0-17.9); LYMPHOCYTES # (AUTO) 33.3 X10'3 (1.1-4.8); LYMPHOCYTES % (AUTO) 72.9 % (21-51); MEAN CORPUSCULAR HGB CONC 32.5 g/dL (33.0-36.5); MEAN CORPUSCULAR VOLUME 100.5 FL (78-98); MONOCYTES # (AUTO) 1.3 X10'3 (0-0.9); MONOCYTES % (AUTO) 2.9 % (2-12); NEUTROPHILS # (AUTO) 10.9 X10'3 (1.8-7.7); NEUTROPHILS % (AUTO) 23.8 % (42-75); PLATELET COUNT 189 X10'3 (140-440); RED BLOOD COUNT 4.23 X10'6 (4.70-6.10); RED CELL DISTRIBUTION WIDTH 14.7 % (11.5-14.5)
[2021-08-11 05:45] LABS: WHITE BLOOD COUNT 45.6 X10'3 (4.5-11.0)
[2021-08-11 06:01] LABS: ALANINE AMINOTRANSFERASE 13 U/L (12-78); ALBUMIN 2.5 G/DL (3.4-5.0); ALBUMIN/GLOBULIN RATIO 0.7 (1.1-1.5); ALKALINE PHOSPHATASE 110 IU/L (46-116); ANION GAP 7 (8-16); ASPARTATE AMINO TRANSFERASE 14 U/L (10-37); BILIRUBIN,TOTAL 0.5 MG/DL (0.1-1.0); BLOOD UREA NITROGEN 79 MG/DL (7-18); BUN/CREATININE RATIO 42.9 (5.4-32.0); CALCIUM 8.6 MG/DL (8.5-10.1); CHLORIDE 102 MMOL/L (99-107); CREATININE 1.84 MG/DL (0.60-1.10); GLUCOSE 129 MG/DL (70-104); MAGNESIUM 1.9 MG/DL (1.5-2.4); PHOSPHORUS 3.8 MG/DL (2.3-4.5); POTASSIUM 5.1 MMOL/L (3.5-5.1); SODIUM 140 MMOL/L (135-145); TOTAL PROTEIN 6.2 G/DL (6.4-8.2); eGFR 36 ML/MIN
[2021-08-11 06:51] LABS: EOSINOPHILS % (MANUAL) 0.5 % (0-6); TOTAL CELLS COUNTED 200
[2021-08-11 06:53] LABS: LYMPHOCYTES % (MANUAL) 75.5 % (21-51)
[2021-08-11 06:54] LABS: PLATELET ESTIMATE NORMAL; SMUDGE CELLS 1+
[2021-08-11 07:00] VITALS: BP 100/66
[2021-08-11] MEDS: lactobacillus rhamnosus 10,000 MMU CELLS/CAPSULE OGT SCH ×2 (07:54→19:27)
[2021-08-11] MEDS: docusate sodium 100mg/10ml UD cup OGT SCH ×2 (07:54→20:00)
[2021-08-11] MEDS: levoTHYROXINE 100mcg tablet OGT SCH (07:55)
[2021-08-11] MEDS: famotidine 20mg tablet OGT SCH ×2 (07:56→19:27)
[2021-08-11] MEDS: sertraline 50mg tablet OGT SCH (07:56)
[2021-08-11] MEDS: carvedilol 6.25mg tablet PO SCH ×2 (07:57→19:27)
[2021-08-11] MEDS: divalproex sodium 500mg tablet.DR PO SCH ×2 (07:57→19:27)
[2021-08-11] MEDS: furosemide 40mg tablet PO SCH ×2 (07:58→19:27)
[2021-08-11] MEDS: lactose-reduced food (Ensure Enlive) - 237ml bottle PO SCH ×3 (07:58→18:05)
[2021-08-11] MEDS: gabapentin 300mg capsule PO SCH ×2 (07:58→19:27)
[2021-08-11] MEDS: apixaban 5mg tablet PO SCH ×2 (07:58→19:27)
--- NOTE | 2021-08-11 11:11 | NUR ---
Reassessment: Pt continues on MM5 diet now also Carb Controlled w/ low PO intake, avg 25% x 6 meals in addition to 100% of first two ONS, overall partially meeting needs. Upon interview w/ pt, he states that he is vegetarian and does not like to eat meat. This could contribute to his current low PO intake. D/w RN pt preference for vegetarian diet. Also provided pt w/ written and verbal DM education. [facility] 08/10. Will continue to monitor. Rec: 1. Continue MM5/Carb controlled diet as tolerated; Add vegetarian per pt preference; consider removing Carb controlled restriction in view of poor PO 2. Ensure Enlive TID 3. routine bowel care 4. weekly wts 5. DM ed once appropriate; hx T2DM A1C 8.5% Addendum: 08/11/21 at [address] Amended: Links added.
--- NOTE | 2021-08-11 11:13 | NUR ---
Reassessment: Pt continues on MM5 diet now also Carb Controlled w/ low PO intake, avg 25% x 6 meals in addition to 100% of first two ONS, overall partially meeting needs. Upon interview w/ pt, he states that he is vegetarian and does not like to eat meat. This could contribute to his current low PO intake. D/w RN pt preference for vegetarian diet. Also provided pt w/ written and verbal DM education. [facility] 08/10. Will continue to monitor. Rec: 1. Continue MM5/Carb controlled diet as tolerated; Add vegetarian per pt preference; consider removing Carb controlled restriction in view of poor PO 2. Ensure Enlive TID 3. routine bowel care 4. weekly wts Addendum: 08/11/21 at [address] Amended: Links added.
[2021-08-11] MEDS: insulin Lispro (HumaLOG) vial - multi-dose SQ SCH ×3 (13:51→22:04)
[2021-08-11 15:00] VITALS: BP 137/69
[2021-08-11 18:00] VITALS: BP 116/59
--- NOTE | 2021-08-11 18:00 | NUR ---
Pt very pleasant this shift. Pt refused repositioning multiple times this shift despite many attempts. Pt continue to be incontinent of urine and stool. Will continue to monitor patients needs and encourge frequent repositioning.
--- NOTE | 2021-08-11 19:02 | NUR ---
Patient in room PCU 3028. I have received report from Lenora CLAROS and had the opportunity to ask questions and assume patient care.
[2021-08-11 22:00] VITALS: BP 101/56
[2021-08-11] MEDS: insulin glargine (Lantus) pen - multi-dose SQ SCH (22:03)
[2021-08-11] MEDS: atorvastatin 10mg tablet OGT SCH (22:05)
[2021-08-12 02:00] VITALS: BP 106/88
[2021-08-12] MEDS: ipratropium/albuterol 3ml nebule NEB SCH ×4 (04:04→21:00)
[2021-08-12 06:00] VITALS: BP 107/60
[2021-08-12 06:13] LABS: EOSINOPHILS # (AUTO) 0.2 X10'3 (0-0.9); HEMATOCRIT 40.7 % (42.0-52.0); HEMOGLOBIN 13.2 g/dl (14.0-17.9); MEAN CORPUSCULAR VOLUME 101.5 FL (78-98)
[2021-08-12 06:15] LABS: BASOPHILS % (AUTO) 0.1 % (0-1); EOSINOPHILS % (AUTO) 0.5 % (0-6); LYMPHOCYTES # (AUTO) 33.4 X10'3 (1.1-4.8); LYMPHOCYTES % (AUTO) 73.8 % (21-51); MEAN CORPUSCULAR HEMOGLOBIN 32.9 PG (27.0-31.0); MEAN CORPUSCULAR HGB CONC 32.4 g/dL (33.0-36.5); MEAN PLATELET VOLUME 9.8 FL (7.4-10.4); MONOCYTES # (AUTO) 2.3 X10'3 (0-0.9); NEUTROPHILS # (AUTO) 9.3 X10'3 (1.8-7.7); NEUTROPHILS % (AUTO) 20.6 % (42-75); PLATELET COUNT 203 X10'3 (140-440); RED BLOOD COUNT 4.01 X10'6 (4.70-6.10); RED CELL DISTRIBUTION WIDTH 14.6 % (11.5-14.5)
[2021-08-12 06:19] LABS: ANION GAP 5 (8-16); BLOOD UREA NITROGEN 71 MG/DL (7-18); CHLORIDE 101 MMOL/L (99-107); CREATININE 1.66 MG/DL (0.60-1.10); POTASSIUM 4.3 MMOL/L (3.5-5.1); SODIUM 138 MMOL/L (135-145); TOTAL CARBON DIOXIDE 32.1 MMOL/L (24-32)
[2021-08-12 06:20] LABS: ALANINE AMINOTRANSFERASE 14 U/L (12-78); ALBUMIN 2.4 G/DL (3.4-5.0); ALBUMIN/GLOBULIN RATIO 0.7 (1.1-1.5); ALKALINE PHOSPHATASE 102 IU/L (46-116); ASPARTATE AMINO TRANSFERASE 18 U/L (10-37); BILIRUBIN,TOTAL 0.4 MG/DL (0.1-1.0); BUN/CREATININE RATIO 42.8 (5.4-32.0); CALCIUM 8.6 MG/DL (8.5-10.1); MAGNESIUM 1.7 MG/DL (1.5-2.4); PHOSPHORUS 3.3 MG/DL (2.3-4.5); TOTAL PROTEIN 5.9 G/DL (6.4-8.2); eGFR 41 ML/MIN
[2021-08-12 06:25] LABS: GLUCOSE 41 MG/DL (70-104)
[2021-08-12 06:35] LABS: WHITE BLOOD COUNT 45.2 X10'3 (4.5-11.0)
--- NOTE | 2021-08-12 06:35 | NUR ---
PAGER ID: [phone] MESSAGE: [id number]. Patient's blood sugar this am was 41, rechecked and it is 35. WBC critical: 45.2. Alysa CLAROS [phone]
--- NOTE | 2021-08-12 07:12 | NUR ---
Problems reprioritized. Patient report given, questions answered & plan of care reviewed with Alysa CLAROS.
[2021-08-12] MEDS: lactose-reduced food (Ensure Enlive) - 237ml bottle PO SCH ×3 (08:00→19:14)
[2021-08-12 10:23] LABS: TOTAL CELLS COUNTED 100
[2021-08-12 10:24] LABS: PLATELET ESTIMATE NORMAL
[2021-08-12 10:26] LABS: STOMATOCYTES 1+
[2021-08-12] MEDS: levoTHYROXINE 100mcg tablet OGT SCH (10:59)
[2021-08-12 11:00] VITALS: BP 106/48
[2021-08-12] MEDS: docusate sodium 100mg/10ml UD cup OGT SCH ×2 (11:01→19:18)
[2021-08-12] MEDS: lactobacillus rhamnosus 10,000 MMU CELLS/CAPSULE OGT SCH ×2 (11:02→19:18)
[2021-08-12] MEDS: famotidine 20mg tablet OGT SCH ×2 (11:03→19:18)
[2021-08-12] MEDS: sertraline 50mg tablet OGT SCH (11:04)
[2021-08-12] MEDS: divalproex sodium 500mg tablet.DR PO SCH ×2 (11:05→19:18)
[2021-08-12] MEDS: apixaban 5mg tablet PO SCH ×2 (11:06→19:18)
[2021-08-12] MEDS: gabapentin 300mg capsule PO SCH ×2 (11:07→19:18)
[2021-08-12] MEDS: carvedilol 6.25mg tablet PO SCH ×2 (11:11→19:18)
[2021-08-12] MEDS: furosemide 40mg tablet PO SCH ×2 (11:12→19:18)
[2021-08-12] MEDS: insulin Lispro (HumaLOG) vial - multi-dose SQ SCH ×3 (14:30→21:19)
[2021-08-12 15:00] VITALS: BP 105/49
[2021-08-12] MEDS: acetaminophen 325mg tablet OGT PRN (16:30)
--- NOTE | 2021-08-12 17:31 | NUR ---
PAGER ID: [phone] MESSAGE: [id number]. Blood sugar 491. Alysa CLAROS [phone]
[2021-08-12 18:00] VITALS: BP 109/66
[2021-08-12] MEDS: atorvastatin 10mg tablet OGT SCH (21:17)
[2021-08-12] MEDS: insulin glargine (Lantus) pen - multi-dose SQ SCH (21:25)
[2021-08-12 22:00] VITALS: BP 108/58
[2021-08-13 02:00] VITALS: BP 136/69
[2021-08-13] MEDS: dextrose ORAL solution 15 GM/59 ML bottle OGT PRN (02:36)
[2021-08-13] MEDS: dextrose 50%-water 50ml dispensing syringe IV PRN ×2 (02:49→07:55)
--- NOTE | 2021-08-13 03:10 | NUR ---
Patient noted at 2am with blood glucose 62mg/dl. Patient asymptomatic. Glucose shot 15mg PO administered. 15 mins later, blood glucose 59mg/dl. Patient still asymptomatic, Dextrose 25mg IV administered. Blood glucose latest 156mg/dl. Will continue to monitor.
[2021-08-13] MEDS: ipratropium/albuterol 3ml nebule NEB SCH ×4 (03:11→19:59)
[2021-08-13 07:00] VITALS: BP 103/65
[2021-08-13] MEDS: levoTHYROXINE 100mcg tablet OGT SCH (07:00)
[2021-08-13] MEDS: famotidine 20mg tablet OGT SCH ×2 (08:00→20:42)
[2021-08-13] MEDS: apixaban 5mg tablet PO SCH ×2 (08:00→20:41)
[2021-08-13] MEDS: carvedilol 6.25mg tablet PO SCH ×2 (08:00→20:43)
[2021-08-13] MEDS: docusate sodium 100mg/10ml UD cup OGT SCH ×2 (08:00→20:00)
[2021-08-13] MEDS: gabapentin 300mg capsule PO SCH ×2 (08:00→20:41)
[2021-08-13] MEDS: lactose-reduced food (Ensure Enlive) - 237ml bottle PO SCH ×3 (08:00→18:00)
[2021-08-13] MEDS: lactobacillus rhamnosus 10,000 MMU CELLS/CAPSULE OGT SCH ×2 (08:00→20:41)
[2021-08-13] MEDS: furosemide 40mg tablet PO SCH ×2 (08:00→20:42)
[2021-08-13] MEDS: sertraline 50mg tablet OGT SCH (08:00)
[2021-08-13] MEDS: divalproex sodium 500mg tablet.DR PO SCH ×2 (08:00→20:43)
[2021-08-13 11:00] VITALS: BP 129/77
--- NOTE | 2021-08-13 12:26 | NUR ---
Patient is difficult to arouse today. Wouldn't wake up enough to take morning PO meds. MD aware. Responding a little more now.
--- NOTE | 2021-08-13 14:48 | NUR ---
Reassessment: Patient's PO intake fluctuates, documented with mostly 25% PO intake 08/11 up to ~75% PO intake 08/12. Noted pt documented with 0% PO intake at breakfast this morning. Pt receiving Ensure Enlive TID with good acceptance, documented with 100% PO intake of all ONS with the exception of today. Per logistics technician pt was difficult to arouse today and wouldn't wake up enough for morning PO meds, MD was notified. Hopeful that PO intake will continue to improve as patient's mentation improves. 100% PO intake of Ensure Enlive TID meets roughly 51% estimated energy needs and 60% estimated protein needs. LBM 08/12. No additional nutrition intervention implemented at this time. Will continue to follow closely and make recommendations as appropriate. Recommendations: 1. Continue MM5 diet with thin liquids per ST recs; Add vegetarian per pt preference; consider removing carb controlled restriction in view of poor PO intake 2. Ensure Enlive TIDWM 3. Routine bowel care 4. Daily scaled weights per rx Addendum: 08/13/21 at [address] Amended: Links added.
[2021-08-13 15:00] VITALS: BP 123/58
[2021-08-13 16:49] LABS: ABG BASE EXCESS 1.2 mmol/L (-2.0-2.0); ABG HCO3 28.6 mmol/L (22.0-26.0); ABG OXYGEN SATURATION 95.8 % (94-97); ABG PCO2 (T) 56.7 mmHg (35.0-48.0); ABG PO2 (T) 80.2 mmHg (75.0-100.0); ALLEN'S TEST POSITIVE; FCOHb 0.5 % (0.0-3.9); FLOW 5 L/min; FMetHb 0.5 % (0.0-1.5); FO2Hb 94.8 % (94-97); TOTAL HEMOGLOBIN 14.6 G/dl (14.0-18.0)
[2021-08-13 18:00] VITALS: BP 122/42
[2021-08-13] MEDS: atorvastatin 10mg tablet OGT SCH (20:42)
[2021-08-13 22:00] VITALS: BP 103/58
[2021-08-13] MEDS: insulin glargine (Lantus) pen - multi-dose SQ SCH (22:23)
[2021-08-14 02:00] VITALS: BP 124/59
[2021-08-14] MEDS: ipratropium/albuterol 3ml nebule NEB SCH ×4 (02:11→20:13)
[2021-08-14 06:00] VITALS: BP 97/55
--- NOTE | 2021-08-14 06:00 | NUR ---
Patient in room PCU 3028. I have received report from night nurse and had the opportunity to ask questions and assume patient care.
[2021-08-14 06:28] LABS: LYMPHOCYTES # (AUTO) 29.1 X10'3 (1.1-4.8)
[2021-08-14 06:31] LABS: BASOPHILS % (AUTO) 0.1 % (0-1); EOSINOPHILS % (AUTO) 0 % (0-6); HEMATOCRIT 37.6 % (42.0-52.0); HEMOGLOBIN 12.2 g/dl (14.0-17.9); LYMPHOCYTES % (AUTO) 64.5 % (21-51); MEAN CORPUSCULAR HEMOGLOBIN 33.3 PG (27.0-31.0); MEAN CORPUSCULAR HGB CONC 32.5 g/dL (33.0-36.5); MEAN CORPUSCULAR VOLUME 102.6 FL (78-98); MEAN PLATELET VOLUME 9.5 FL (7.4-10.4); MONOCYTES # (AUTO) 1.1 X10'3 (0-0.9); MONOCYTES % (AUTO) 2.5 % (2-12); NEUTROPHILS # (AUTO) 14.8 X10'3 (1.8-7.7); NEUTROPHILS % (AUTO) 32.9 % (42-75); PLATELET COUNT 196 X10'3 (140-440); RED BLOOD COUNT 3.67 X10'6 (4.70-6.10); RED CELL DISTRIBUTION WIDTH 14.5 % (11.5-14.5)
[2021-08-14 06:43] LABS: WHITE BLOOD COUNT 45.1 X10'3 (4.5-11.0)
[2021-08-14 06:44] LABS: ALANINE AMINOTRANSFERASE 9 U/L (12-78); ALBUMIN 2.2 G/DL (3.4-5.0); ALBUMIN/GLOBULIN RATIO 0.6 (1.1-1.5); ALKALINE PHOSPHATASE 94 IU/L (46-116); ANION GAP 3 (8-16); ASPARTATE AMINO TRANSFERASE 15 U/L (10-37); BILIRUBIN,TOTAL 0.5 MG/DL (0.1-1.0); BLOOD UREA NITROGEN 89 MG/DL (7-18); BUN/CREATININE RATIO 37.2 (5.4-32.0); CALCIUM 8.5 MG/DL (8.5-10.1); CHLORIDE 96 MMOL/L (99-107); CREATININE 2.39 MG/DL (0.60-1.10); GLUCOSE 400 MG/DL (70-104); POTASSIUM 5.5 MMOL/L (3.5-5.1); SODIUM 136 MMOL/L (135-145); TOTAL CARBON DIOXIDE 36.6 MMOL/L (24-32); TOTAL PROTEIN 6.1 G/DL (6.4-8.2); eGFR 27 ML/MIN
[2021-08-14] MEDS: levoTHYROXINE 100mcg tablet OGT SCH (07:12)
[2021-08-14] MEDS: normal saline 1000ml 1,000 ML IV SCH ×2 (07:20→19:48)
[2021-08-14] MEDS: sertraline 50mg tablet OGT SCH (07:34)
[2021-08-14] MEDS: carvedilol 6.25mg tablet PO SCH ×2 (07:34→19:48)
[2021-08-14] MEDS: docusate sodium 100mg/10ml UD cup OGT SCH ×2 (07:34→19:47)
[2021-08-14] MEDS: lactobacillus rhamnosus 10,000 MMU CELLS/CAPSULE OGT SCH ×2 (07:34→19:47)
[2021-08-14] MEDS: apixaban 5mg tablet PO SCH ×2 (07:34→19:48)
[2021-08-14] MEDS: gabapentin 300mg capsule PO SCH ×2 (07:34→19:47)
[2021-08-14] MEDS: famotidine 20mg tablet OGT SCH ×2 (07:34→19:47)
[2021-08-14] MEDS: divalproex sodium 500mg tablet.DR PO SCH ×2 (07:34→19:48)
[2021-08-14 07:53] LABS: PLATELET ESTIMATE NORMAL; TOTAL CELLS COUNTED 100
[2021-08-14] MEDS: lactose-reduced food (Ensure Enlive) - 237ml bottle PO SCH ×3 (08:00→18:03)
[2021-08-14] MEDS: insulin Lispro (HumaLOG) vial - multi-dose SQ SCH ×3 (09:56→20:15)
[2021-08-14 11:00] VITALS: BP 112/59
--- NOTE | 2021-08-14 12:00 | NUR ---
pt sitting in bed, , incontinent of urine, entire bed line changed, pts oral cavity is very dry, iv fluids infusing, assisted pt with eating lunch.
[2021-08-14 15:00] VITALS: BP 116/71
[2021-08-14 18:00] VITALS: BP 127/64
--- NOTE | 2021-08-14 18:08 | NUR ---
Problems reprioritized. Patient report given, questions answered & plan of care reviewed with oncoming nurse.
[2021-08-14] MEDS: atorvastatin 10mg tablet OGT SCH (19:49)
[2021-08-14 22:00] VITALS: BP 124/61
[2021-08-14] MEDS: insulin glargine (Lantus) pen - multi-dose SQ SCH (22:40)
[2021-08-15 02:00] VITALS: BP 155/70
[2021-08-15] MEDS: ipratropium/albuterol 3ml nebule NEB SCH ×4 (02:50→21:11)
--- NOTE | 2021-08-15 06:48 | NUR ---
Patient in room PCU 3028. I have received report from Parvin CLAROS and had the opportunity to ask questions and assume patient care.
[2021-08-15] MEDS: levoTHYROXINE 100mcg tablet OGT SCH (07:00)
[2021-08-15 07:43] VITALS: BP 143/70
[2021-08-15] MEDS: divalproex sodium 500mg tablet.DR PO SCH ×2 (08:00→19:30)
[2021-08-15] MEDS: apixaban 5mg tablet PO SCH ×2 (08:00→19:30)
[2021-08-15] MEDS: lactose-reduced food (Ensure Enlive) - 237ml bottle PO SCH ×3 (08:00→19:30)
[2021-08-15] MEDS: famotidine 20mg tablet OGT SCH ×2 (08:00→19:31)
[2021-08-15] MEDS: sertraline 50mg tablet OGT SCH (08:00)
[2021-08-15] MEDS: docusate sodium 100mg/10ml UD cup OGT SCH ×2 (08:00→19:30)
[2021-08-15] MEDS: lactobacillus rhamnosus 10,000 MMU CELLS/CAPSULE OGT SCH ×2 (08:00→19:30)
[2021-08-15] MEDS: carvedilol 6.25mg tablet PO SCH ×2 (08:00→19:31)
[2021-08-15] MEDS: gabapentin 300mg capsule PO SCH ×2 (08:00→19:30)
[2021-08-15 09:40] LABS: ALBUMIN 2.1 G/DL (3.4-5.0); ANION GAP 1 (8-16); BLOOD UREA NITROGEN 70 MG/DL (7-18); BUN/CREATININE RATIO 41.9 (5.4-32.0); CALCIUM 8.9 MG/DL (8.5-10.1); CHLORIDE 105 MMOL/L (99-107); CREATININE 1.67 MG/DL (0.60-1.10); GLUCOSE 205 MG/DL (70-104); POTASSIUM 4.5 MMOL/L (3.5-5.1); SODIUM 143 MMOL/L (135-145); TOTAL CARBON DIOXIDE 37.3 MMOL/L (24-32); eGFR 41 ML/MIN
[2021-08-15] MEDS: normal saline 1000ml 1,000 ML IV SCH (09:58)
[2021-08-15 11:00] VITALS: BP 146/65
[2021-08-15 13:59] LABS: ABG BASE EXCESS 1.7 mmol/L (-2.0-2.0); ABG HCO3 36.2 mmol/L (22.0-26.0); ABG OXYGEN SATURATION 93.9 % (94-97); ABG PCO2 (T) 128.8 mmHg (35.0-48.0); ABG PO2 (T) 88.4 mmHg (75.0-100.0); ALLEN'S TEST POSITIVE; FCOHb 0.3 % (0.0-3.9); FMetHb 0.3 % (0.0-1.5); FO2Hb 93.3 % (94-97); TOTAL HEMOGLOBIN 14.1 G/dl (14.0-18.0)
[2021-08-15] MEDS ORDERED: hydrALAZINE 20mg/ml inj. IV ONE (14:00)
[2021-08-15] MEDS: insulin Lispro (HumaLOG) vial - multi-dose SQ SCH ×3 (14:12→21:27)
[2021-08-15 14:37] LABS: BASOPHILS # (AUTO) 0.1 X10'3 (0-0.2); BASOPHILS % (AUTO) 0.2 % (0-1); EOSINOPHILS % (AUTO) 0.4 % (0-6); HEMOGLOBIN 13.3 g/dl (14.0-17.9); MONOCYTES % (AUTO) 2.9 % (2-12); RED CELL DISTRIBUTION WIDTH 14.9 % (11.5-14.5)
[2021-08-15 14:40] LABS: EOSINOPHILS # (AUTO) 0.2 X10'3 (0-0.9); HEMATOCRIT 42.4 % (42.0-52.0); LYMPHOCYTES # (AUTO) 43.9 X10'3 (1.1-4.8); LYMPHOCYTES % (AUTO) 67.7 % (21-51); MEAN CORPUSCULAR HEMOGLOBIN 32.9 PG (27.0-31.0); MEAN CORPUSCULAR HGB CONC 31.4 g/dL (33.0-36.5); MEAN CORPUSCULAR VOLUME 104.6 FL (78-98); MEAN PLATELET VOLUME 9.6 FL (7.4-10.4); MONOCYTES # (AUTO) 1.9 X10'3 (0-0.9); NEUTROPHILS # (AUTO) 18.7 X10'3 (1.8-7.7); NEUTROPHILS % (AUTO) 28.8 % (42-75); PLATELET COUNT 265 X10'3 (140-440); RED BLOOD COUNT 4.05 X10'6 (4.70-6.10)
[2021-08-15 14:45] LABS: WHITE BLOOD COUNT 64.9 X10'3 (4.5-11.0)
[2021-08-15 15:00] VITALS: BP 137/70
[2021-08-15 15:29] LABS: ABG BASE EXCESS 7.6 mmol/L (-2.0-2.0); ABG HCO3 36.6 mmol/L (22.0-26.0); ABG OXYGEN SATURATION 97.8 % (94-97); ABG PO2 (T) 103.7 mmHg (75.0-100.0); ALLEN'S TEST POSITIVE; FCOHb 0.4 % (0.0-3.9); FMetHb 0.1 % (0.0-1.5); FO2Hb 97.3 % (94-97); RESPIRATORY RATE 14 b/min; TOTAL HEMOGLOBIN 13.8 G/dl (14.0-18.0)
--- NOTE | 2021-08-15 15:30 | NUR ---
PAGER ID: [phone] MESSAGE: Zackary Surg [phone] Re: Winifred Baker Patient has a WBC of 64.9 and patient is getting his follow up ABG right now. Sats are 96 on bipap.
[2021-08-15 15:48] LABS: TOTAL CELLS COUNTED 100
[2021-08-15 15:49] LABS: PLATELET ESTIMATE NORMAL; STOMATOCYTES 1+
[2021-08-15 18:00] VITALS: BP 149/80
--- NOTE | 2021-08-15 18:31 | NUR ---
Problems reprioritized. Patient report given, questions answered & plan of care reviewed with Ene RN.
[2021-08-15] MEDS: atorvastatin 10mg tablet OGT SCH (21:22)
[2021-08-15] MEDS: insulin glargine (Lantus) pen - multi-dose SQ SCH (21:25)
[2021-08-15 22:00] VITALS: BP 139/71
[2021-08-16 02:00] VITALS: BP 143/76
[2021-08-16] MEDS: ipratropium/albuterol 3ml nebule NEB SCH ×4 (04:21→21:33)
[2021-08-16 07:00] VITALS: BP 153/85
[2021-08-16] MEDS: divalproex sodium 500mg tablet.DR PO SCH ×2 (07:20→20:15)
[2021-08-16] MEDS: lactobacillus rhamnosus 10,000 MMU CELLS/CAPSULE OGT SCH ×2 (07:20→20:15)
[2021-08-16] MEDS: sertraline 50mg tablet OGT SCH (07:20)
[2021-08-16] MEDS: docusate sodium 100mg/10ml UD cup OGT SCH ×2 (07:20→20:15)
[2021-08-16] MEDS: apixaban 5mg tablet PO SCH ×2 (07:20→20:15)
[2021-08-16] MEDS: carvedilol 6.25mg tablet PO SCH ×2 (07:20→20:15)
[2021-08-16] MEDS: famotidine 20mg tablet OGT SCH ×2 (07:20→20:15)
[2021-08-16] MEDS: lactose-reduced food (Ensure Enlive) - 237ml bottle PO SCH ×4 (07:21→20:16)
[2021-08-16] MEDS: gabapentin 300mg capsule PO SCH ×2 (07:21→20:16)
[2021-08-16] MEDS: levoTHYROXINE 100mcg tablet OGT SCH (07:21)
[2021-08-16] MEDS: insulin Lispro (HumaLOG) vial - multi-dose SQ SCH ×3 (09:14→20:07)
[2021-08-16] MEDS ORDERED: potassium Cl 40MEQ/1/2NS 520ml 520 ML IV PRN (09:15)
[2021-08-16] MEDS ORDERED: potassium Cl 20 mEq SR tablet PO PRN ×2 (09:15)
[2021-08-16] MEDS ORDERED: magnesium Cl slow-release 64mg tablet PO PRN (09:15)
[2021-08-16] MEDS ORDERED: magnesium 4gm in 100ml NS 100 ML IV PRN (09:15)
[2021-08-16 09:59] LABS: BASOPHILS % (AUTO) 0 % (0-1); EOSINOPHILS % (AUTO) 0.1 % (0-6); HEMATOCRIT 41.1 % (42.0-52.0); HEMOGLOBIN 12.7 g/dl (14.0-17.9); LYMPHOCYTES # (AUTO) 25.4 X10'3 (1.1-4.8); LYMPHOCYTES % (AUTO) 58.5 % (21-51); MEAN CORPUSCULAR HEMOGLOBIN 32.7 PG (27.0-31.0); MEAN CORPUSCULAR HGB CONC 30.9 g/dL (33.0-36.5); MEAN CORPUSCULAR VOLUME 105.8 FL (78-98); MEAN PLATELET VOLUME 9.7 FL (7.4-10.4); MONOCYTES # (AUTO) 1.7 X10'3 (0-0.9); NEUTROPHILS # (AUTO) 16.2 X10'3 (1.8-7.7); NEUTROPHILS % (AUTO) 37.4 % (42-75); PLATELET COUNT 216 X10'3 (140-440); RED BLOOD COUNT 3.89 X10'6 (4.70-6.10); RED CELL DISTRIBUTION WIDTH 15.2 % (11.5-14.5)
[2021-08-16 10:07] LABS: WHITE BLOOD COUNT 43.4 X10'3 (4.5-11.0)
[2021-08-16 10:08] LABS: ALBUMIN 2.2 G/DL (3.4-5.0); ANION GAP 4 (8-16); BLOOD UREA NITROGEN 64 MG/DL (7-18); BUN/CREATININE RATIO 38.1 (5.4-32.0); CALCIUM 9.4 MG/DL (8.5-10.1); CHLORIDE 106 MMOL/L (99-107); CREATININE 1.68 MG/DL (0.60-1.10); GLUCOSE 401 MG/DL (70-104); POTASSIUM 4.8 MMOL/L (3.5-5.1); SODIUM 145 MMOL/L (135-145); TOTAL CARBON DIOXIDE 34.7 MMOL/L (24-32); eGFR 40 ML/MIN
--- NOTE | 2021-08-16 10:08 | NUR ---
TOOK CRITICAL VALUE FROM LAB AND REPORTED IT TO PRIMARY RN
[2021-08-16 13:09] VITALS: BP 141/79
[2021-08-16 14:06] LABS: PLATELET ESTIMATE NORMAL; TOTAL CELLS COUNTED 100
[2021-08-16 14:09] LABS: STOMATOCYTES 1+
--- NOTE | 2021-08-16 14:11 | NUR ---
relieving RN for lunch, pt is sitting up in bed sleeping, easily arouseable, HR 81, 96% on 5 liters nasal cannula, resp even and unlabored
[2021-08-16 15:00] VITALS: BP 146/72
--- NOTE | 2021-08-16 15:04 | NUR ---
Reassessment: Patient's PO intake fluctuates, avg 18% x 8 meals in addition to Ensure Enlive TID with good acceptance, documented with avg 80% intake. Overall meeting approximately 57% of est energy needs and 62% of est protein needs. Noted vegetarian diet not added per pt preference, recommend addition of vegetarian diet. Will provide additional smoothies as pt seems to consume liquids better. LBM 08/12 receiving routine colace. Will continue to follow closely and make recommendations as appropriate. Recommendations: 1. Continue MM5 diet with thin liquids per ST recs; Add vegetarian per pt preference; consider removing carb controlled restriction in view of poor PO intake 2. Ensure Enlive TIDWM 3. Smoothies BIDBD 4. Routine bowel care 5. Daily scaled weights per rx 6. IF PO does not improve, consider supplemental EN if within POC Addendum: 08/16/21 at [address] Amended: Links added.
[2021-08-16 18:00] VITALS: BP 135/85
[2021-08-16] MEDS: K and/or MAG REPLACEMENT MC SCH (19:59)
[2021-08-16] MEDS: atorvastatin 10mg tablet OGT SCH (20:15)
[2021-08-16 22:00] VITALS: BP 141/75
[2021-08-16] MEDS: insulin glargine (Lantus) pen - multi-dose SQ SCH (22:11)
[2021-08-17 02:00] VITALS: BP 130/69
[2021-08-17] MEDS: ipratropium/albuterol 3ml nebule NEB SCH ×4 (02:46→22:01)
[2021-08-17 06:00] VITALS: BP 159/91
--- NOTE | 2021-08-17 07:05 | NUR ---
Patient in room PCU 3028. I have received report from Vikram CLAROS and had the opportunity to ask questions and assume patient care.
[2021-08-17] MEDS: docusate sodium 100mg/10ml UD cup OGT SCH ×3 (07:47→21:04)
[2021-08-17] MEDS: lactobacillus rhamnosus 10,000 MMU CELLS/CAPSULE OGT SCH ×2 (07:48→21:05)
[2021-08-17] MEDS: gabapentin 300mg capsule PO SCH ×2 (07:48→21:05)
[2021-08-17] MEDS: sertraline 50mg tablet OGT SCH (07:48)
[2021-08-17] MEDS: levoTHYROXINE 100mcg tablet OGT SCH (07:48)
[2021-08-17] MEDS: divalproex sodium 500mg tablet.DR PO SCH ×2 (07:48→21:05)
[2021-08-17] MEDS: carvedilol 6.25mg tablet PO SCH ×2 (07:48→21:04)
[2021-08-17] MEDS: apixaban 5mg tablet PO SCH ×2 (07:48→21:05)
[2021-08-17] MEDS: famotidine 20mg tablet OGT SCH (07:48)
[2021-08-17] MEDS: K and/or MAG REPLACEMENT MC SCH ×2 (08:00→20:00)
[2021-08-17 09:10] LABS: BASOPHILS # (AUTO) 0.1 X10'3 (0-0.2); BASOPHILS % (AUTO) 0.1 % (0-1); EOSINOPHILS # (AUTO) 0.2 X10'3 (0-0.9); EOSINOPHILS % (AUTO) 0.4 % (0-6); HEMATOCRIT 42.1 % (42.0-52.0); HEMOGLOBIN 13.2 g/dl (14.0-17.9); LYMPHOCYTES % (AUTO) 68.1 % (21-51); MEAN CORPUSCULAR HEMOGLOBIN 32.9 PG (27.0-31.0); MEAN CORPUSCULAR HGB CONC 31.4 g/dL (33.0-36.5); MEAN CORPUSCULAR VOLUME 104.8 FL (78-98); MEAN PLATELET VOLUME 9.4 FL (7.4-10.4); MONOCYTES # (AUTO) 1.3 X10'3 (0-0.9); MONOCYTES % (AUTO) 2.8 % (2-12); NEUTROPHILS # (AUTO) 12.6 X10'3 (1.8-7.7); NEUTROPHILS % (AUTO) 28.6 % (42-75); PLATELET COUNT 242 X10'3 (140-440); RED BLOOD COUNT 4.02 X10'6 (4.70-6.10); RED CELL DISTRIBUTION WIDTH 15.2 % (11.5-14.5)
[2021-08-17 09:13] LABS: WHITE BLOOD COUNT 44.1 X10'3 (4.5-11.0)
[2021-08-17 09:33] LABS: ALANINE AMINOTRANSFERASE 12 U/L (12-78); ALBUMIN 2.2 G/DL (3.4-5.0); ALBUMIN/GLOBULIN RATIO 0.5 (1.1-1.5); ALKALINE PHOSPHATASE 116 IU/L (46-116); ANION GAP 2 (8-16); ASPARTATE AMINO TRANSFERASE 14 U/L (10-37); BILIRUBIN,TOTAL 0.4 MG/DL (0.1-1.0); BLOOD UREA NITROGEN 59 MG/DL (7-18); BUN/CREATININE RATIO 38.1 (5.4-32.0); CALCIUM 9.6 MG/DL (8.5-10.1); CHLORIDE 109 MMOL/L (99-107); CREATININE 1.55 MG/DL (0.60-1.10); GLUCOSE 82 MG/DL (70-104); MAGNESIUM 2.1 MG/DL (1.5-2.4); PHOSPHORUS 3.1 MG/DL (2.3-4.5); POTASSIUM 4.1 MMOL/L (3.5-5.1); SODIUM 150 MMOL/L (135-145); TOTAL CARBON DIOXIDE 38.6 MMOL/L (24-32); TOTAL PROTEIN 6.6 G/DL (6.4-8.2); eGFR 44 ML/MIN
[2021-08-17 09:34] LABS: PLATELET ESTIMATE NORMAL; SMUDGE CELLS 1+; TOTAL CELLS COUNTED 100
--- NOTE | 2021-08-17 10:36 | NUR ---
i WAS AT BEDSIDE WHILE DR HAGAN WAS DISCUSSING CODE STATUS WITH PT AND THE PT WOULD LIKE CHEST COMPRESSIONS AND MEDS BUT NO INVASIVE VENTILATION
--- NOTE | 2021-08-17 10:43 | NUR ---
PAGE TO RESPIRATORY 5081R NADIR. PT NEEDS FULL FACE MASK FOR BIPAP DUE TO WOUND ON NOSE. BASILIA [id number]
[2021-08-17] MEDS: lactose-reduced food (Ensure Enlive) - 237ml bottle PO SCH ×2 (13:00→18:00)
[2021-08-17] MEDS ORDERED: furosemide 20 MG/2 ML vial IV ONE (13:25)
[2021-08-17 15:00] VITALS: BP 165/96
[2021-08-17 18:00] VITALS: BP 150/89
--- NOTE | 2021-08-17 18:27 | NUR ---
Problems reprioritized. Patient report given, questions answered & plan of care reviewed with Vikram RN, patient stable at transfer of care.
[2021-08-17] MEDS: insulin glargine (Lantus) pen - multi-dose SQ SCH (21:00)
[2021-08-17] MEDS: furosemide 20 MG/2 ML vial IV SCH (21:05)
[2021-08-17] MEDS: atorvastatin 10mg tablet OGT SCH (21:06)
[2021-08-17 22:00] VITALS: BP 148/76
[2021-08-18 02:00] VITALS: BP 159/85
[2021-08-18] MEDS: ipratropium/albuterol 3ml nebule NEB SCH ×4 (02:19→19:35)
[2021-08-18 06:00] VITALS: BP 159/82
[2021-08-18 06:03] LABS: EOSINOPHILS # (AUTO) 0.2 X10'3 (0-0.9); EOSINOPHILS % (AUTO) 0.6 % (0-6); HEMOGLOBIN 13.4 g/dl (14.0-17.9); NEUTROPHILS % (AUTO) 21.6 % (42-75)
[2021-08-18 06:05] LABS: BASOPHILS % (AUTO) 0.1 % (0-1); HEMATOCRIT 42.4 % (42.0-52.0); LYMPHOCYTES # (AUTO) 26.5 X10'3 (1.1-4.8); LYMPHOCYTES % (AUTO) 73.7 % (21-51); MEAN CORPUSCULAR HEMOGLOBIN 33.1 PG (27.0-31.0); MEAN CORPUSCULAR HGB CONC 31.5 g/dL (33.0-36.5); MEAN CORPUSCULAR VOLUME 105.2 FL (78-98); MEAN PLATELET VOLUME 9.3 FL (7.4-10.4); MONOCYTES # (AUTO) 1.5 X10'3 (0-0.9); NEUTROPHILS # (AUTO) 7.8 X10'3 (1.8-7.7); PLATELET COUNT 203 X10'3 (140-440); RED BLOOD COUNT 4.03 X10'6 (4.70-6.10)
[2021-08-18 06:37] LABS: ALANINE AMINOTRANSFERASE 11 U/L (12-78); ALBUMIN 2.3 G/DL (3.4-5.0); ALBUMIN/GLOBULIN RATIO 0.6 (1.1-1.5); ALKALINE PHOSPHATASE 120 IU/L (46-116); ANION GAP 5 (8-16); ASPARTATE AMINO TRANSFERASE 15 U/L (10-37); BILIRUBIN,TOTAL 0.4 MG/DL (0.1-1.0); BLOOD UREA NITROGEN 63 MG/DL (7-18); BUN/CREATININE RATIO 38.7 (5.4-32.0); CALCIUM 8.7 MG/DL (8.5-10.1); CHLORIDE 108 MMOL/L (99-107); CREATININE 1.63 MG/DL (0.60-1.10); GLUCOSE 287 MG/DL (70-104); MAGNESIUM 2.2 MG/DL (1.5-2.4); PHOSPHORUS 4.3 MG/DL (2.3-4.5); POTASSIUM 5.3 MMOL/L (3.5-5.1); SODIUM 149 MMOL/L (135-145); TOTAL CARBON DIOXIDE 36.3 MMOL/L (24-32); eGFR 42 ML/MIN
--- NOTE | 2021-08-18 07:21 | NUR ---
Patient in room PCU 3028. I have received report from Vikram CLAROS and had the opportunity to ask questions and assume patient care.
[2021-08-18 07:36] LABS: LARGE PLATELETS FEW; PLATELET ESTIMATE NORMAL; SMUDGE CELLS 1+; TOTAL CELLS COUNTED 100
[2021-08-18] MEDS: lactobacillus rhamnosus 10,000 MMU CELLS/CAPSULE OGT SCH ×2 (07:43→20:24)
[2021-08-18] MEDS: gabapentin 300mg capsule PO SCH ×2 (07:43→20:24)
[2021-08-18] MEDS: carvedilol 6.25mg tablet PO SCH ×2 (07:43→20:24)
[2021-08-18] MEDS: apixaban 5mg tablet PO SCH ×2 (07:44→20:24)
[2021-08-18] MEDS: pantoprazole 40mg Tablet.DR PO SCH (07:44)
[2021-08-18] MEDS: sertraline 50mg tablet OGT SCH (07:44)
[2021-08-18] MEDS: levoTHYROXINE 100mcg tablet OGT SCH (07:45)
[2021-08-18] MEDS: divalproex sodium 500mg tablet.DR PO SCH ×2 (07:45→20:00)
[2021-08-18] MEDS: furosemide 20 MG/2 ML vial IV SCH ×2 (07:46→20:23)
[2021-08-18] MEDS: lactose-reduced food (Ensure Enlive) - 237ml bottle PO SCH ×3 (08:00→18:00)
[2021-08-18] MEDS: K and/or MAG REPLACEMENT MC SCH ×2 (08:00→20:00)
[2021-08-18 11:00] VITALS: BP 114/77
[2021-08-18] MEDS: insulin Lispro (HumaLOG) vial - multi-dose SQ SCH (13:52)
[2021-08-18 15:00] VITALS: BP 137/72
[2021-08-18 18:00] VITALS: BP 151/88
--- NOTE | 2021-08-18 18:31 | NUR ---
Problems reprioritized. Patient report given, questions answered & plan of care reviewed with Mimi RN, patient stable at transfer of care.
[2021-08-18] MEDS: docusate sodium 100mg/10ml UD cup OGT SCH (20:23)
[2021-08-18] MEDS: atorvastatin 10mg tablet OGT SCH (20:23)
[2021-08-18] MEDS: insulin glargine (Lantus) pen - multi-dose SQ SCH (21:00)
[2021-08-18 22:00] VITALS: BP 131/71
[2021-08-19 02:00] VITALS: BP 156/89
[2021-08-19] MEDS: ipratropium/albuterol 3ml nebule NEB SCH ×4 (03:05→23:42)
[2021-08-19 06:00] VITALS: BP 125/50
[2021-08-19] MEDS: levoTHYROXINE 100mcg tablet OGT SCH (07:00)
[2021-08-19] MEDS: pantoprazole 40mg Tablet.DR PO SCH (07:30)
[2021-08-19] MEDS: lactose-reduced food (Ensure Enlive) - 237ml bottle PO SCH ×3 (08:00→18:00)
[2021-08-19] MEDS: docusate sodium 100mg/10ml UD cup OGT SCH ×2 (08:00→20:00)
[2021-08-19] MEDS: K and/or MAG REPLACEMENT MC SCH ×2 (08:00→19:10)
[2021-08-19] MEDS: gabapentin 300mg capsule PO SCH ×2 (08:00→20:00)
[2021-08-19] MEDS: carvedilol 6.25mg tablet PO SCH ×2 (08:00→20:00)
[2021-08-19] MEDS: lactobacillus rhamnosus 10,000 MMU CELLS/CAPSULE OGT SCH ×2 (08:00→20:00)
[2021-08-19] MEDS: sertraline 50mg tablet OGT SCH (08:00)
[2021-08-19] MEDS: apixaban 5mg tablet PO SCH ×2 (08:00→20:00)
[2021-08-19] MEDS: furosemide 20 MG/2 ML vial IV SCH ×2 (08:00→19:07)
[2021-08-19] MEDS: divalproex sodium 500mg tablet.DR PO SCH ×2 (08:00→20:00)
[2021-08-19 08:05] LABS: MEAN CORPUSCULAR HEMOGLOBIN 33.1 PG (27.0-31.0)
[2021-08-19 08:06] LABS: BASOPHILS % (AUTO) 0.1 % (0-1); EOSINOPHILS # (AUTO) 0.3 X10'3 (0-0.9); EOSINOPHILS % (AUTO) 1.1 % (0-6); HEMATOCRIT 39.8 % (42.0-52.0); HEMOGLOBIN 12.7 g/dl (14.0-17.9); LYMPHOCYTES # (AUTO) 23.5 X10'3 (1.1-4.8); LYMPHOCYTES % (AUTO) 74.4 % (21-51); MEAN CORPUSCULAR VOLUME 103.5 FL (78-98); MONOCYTES # (AUTO) 0.9 X10'3 (0-0.9); MONOCYTES % (AUTO) 2.7 % (2-12); NEUTROPHILS # (AUTO) 6.9 X10'3 (1.8-7.7); NEUTROPHILS % (AUTO) 21.7 % (42-75); PLATELET COUNT 191 X10'3 (140-440); RED BLOOD COUNT 3.85 X10'6 (4.70-6.10); RED CELL DISTRIBUTION WIDTH 14.4 % (11.5-14.5)
[2021-08-19 08:11] LABS: WHITE BLOOD COUNT 31.6 X10'3 (4.5-11.0)
--- NOTE | 2021-08-19 08:16 | NUR ---
Message: 28a CHIP SCHMITZ wbc 31.6 TRENDING DOWN Custom Responses: promotional table spacer Transaction number: [id number]
[2021-08-19 08:29] LABS: ALANINE AMINOTRANSFERASE 9 U/L (12-78); ALBUMIN 2.2 G/DL (3.4-5.0); ALBUMIN/GLOBULIN RATIO 0.6 (1.1-1.5); ALKALINE PHOSPHATASE 116 IU/L (46-116); ANION GAP 4 (8-16); ASPARTATE AMINO TRANSFERASE 12 U/L (10-37); BILIRUBIN,TOTAL 0.4 MG/DL (0.1-1.0); BLOOD UREA NITROGEN 60 MG/DL (7-18); BUN/CREATININE RATIO 40.5 (5.4-32.0); CALCIUM 8.5 MG/DL (8.5-10.1); CHLORIDE 105 MMOL/L (99-107); CREATININE 1.48 MG/DL (0.60-1.10); GLUCOSE 284 MG/DL (70-104); MAGNESIUM 1.8 MG/DL (1.5-2.4); PHOSPHORUS 2.8 MG/DL (2.3-4.5); POTASSIUM 4.7 MMOL/L (3.5-5.1); SODIUM 147 MMOL/L (135-145); TOTAL CARBON DIOXIDE 37.6 MMOL/L (24-32); TOTAL PROTEIN 5.7 G/DL (6.4-8.2); eGFR 47 ML/MIN
[2021-08-19 09:03] LABS: PLATELET ESTIMATE NORMAL; TOTAL CELLS COUNTED 100
[2021-08-19 09:07] LABS: SMUDGE CELLS 2+; STOMATOCYTES 2+
[2021-08-19] MEDS: insulin Lispro (HumaLOG) vial - multi-dose SQ SCH ×2 (09:19→14:02)
--- NOTE | 2021-08-19 14:35 | NUR ---
Reassessment: Patient's PO intake continues to fluctuate, overall with 0-25% PO intake of meals not meeting estimated nutrient needs. Pt receiving an Ensure Enlive TID with fair acceptance, averaging 73% PO intake of ONS since 08/16. Noted pt still not on a vegetarian diet. Pt seen at bedside confirms he does not eat meat or fish though does like tuna and eggs. Food preferences were d/w dietary to optimize PO intake. Pt provided with RD contact information and encouraged to reach out for further preferences. LBM 08/18, with routine bowel care available though pt refuses at times per EMR. Will continue to follow closely. Recommendations: 1. Continue MM5 diet with thin liquids per ST recs; Add vegetarian per pt preference; consider removing carb controlled restriction in view of poor PO intake 2. Ensure Enlive TIDWM; smoothies BIDBD 3. [place] food preferences: No meat, poultry or fish; tuna and eggs are okay 4. Routine bowel care 5. Daily scaled weights per rx 6. IF PO does not improve, consider supplemental EN if within POC Addendum: 08/19/21 at [address] Amended: Links added.
--- NOTE | 2021-08-19 15:47 | NUR ---
The patient is a vegitarian, he said " this is why I don't eat the meals." I sent the information to dietary
[2021-08-19] MEDS: dextrose ORAL solution 15 GM/59 ML bottle OGT PRN (17:24)
[2021-08-19] MEDS: dextrose 50%-water 50ml dispensing syringe IV PRN ×2 (17:36→21:12)
--- NOTE | 2021-08-19 17:47 | NUR ---
Message: [id number] saturation O2 is 82 we are calling a rapid FYI ext [phone]
[2021-08-19 17:57] LABS: ABG BASE EXCESS 2.3 mmol/L (-2.0-2.0); ABG OXYGEN SATURATION 77.9 % (94-97); ABG PCO2 (T) 145.9 mmHg (35.0-48.0); ABG PO2 (T) 57.8 mmHg (75.0-100.0); ALLEN'S TEST Modified; FCOHb 0.2 % (0.0-3.9); FMetHb 0.4 % (0.0-1.5); FO2Hb 77.4 % (94-97); TOTAL HEMOGLOBIN 14.4 G/dl (14.0-18.0)
--- NOTE | 2021-08-19 18:57 | NUR ---
Patient BG was 70, gave 25mL of dextrose and then he started having respiratory distress. RT was called he was put on Bipap. ABGs drawn BG correcrted to 135. His O2 levels came up and doctor decided to redraw ABGs at 1900.
[2021-08-19 20:51] LABS: ABG BASE EXCESS 11.2 mmol/L (-2.0-2.0); ABG HCO3 44.3 mmol/L (22.0-26.0); ABG OXYGEN SATURATION 99.5 % (94-97); ABG PCO2 (T) 113.8 mmHg (35.0-48.0); ABG PO2 (T) 323.2 mmHg (75.0-100.0); ALLEN'S TEST Modified; FCOHb 0.2 % (0.0-3.9); FMetHb 0.5 % (0.0-1.5); FO2Hb 98.8 % (94-97); PATIENT TEMPERATURE 36.7; TOTAL HEMOGLOBIN 14.1 G/dl (14.0-18.0)
[2021-08-19] MEDS: insulin glargine (Lantus) pen - multi-dose SQ SCH (21:00)
[2021-08-19] MEDS: atorvastatin 10mg tablet OGT SCH (21:00)
[2021-08-19 21:16] VITALS: BP 102/64
--- NOTE | 2021-08-19 22:00 | NUR ---
notified about blood sugar 29 and amp of D50% was pushed, blood sugar was 55 Q15 min later, another amp was pushed and 15 min later blood sugar was 77. does not want to start D5 drip at this time. also notified pt is unable to swallow pills and follow commands due to lethargy, Dr ordered bedside swallow, patient failed and unable to take night medications.
--- NOTE | 2021-08-20 00:01 | NUR ---
Patient noted at 2030 with BP 141/70 prior to nightly BP meds Lasix and Carvedilol. At 0 BP noted at 84/55. MD [place] notified, and order for bolus 250ml, and Lasix reduced from 60mg to 40mg, as well as Carvedilol reduced from 6.25mg to 3.125 acknowledged. BP presently is 110/61.
[2021-08-20] MEDS: ipratropium/albuterol 3ml nebule NEB SCH ×4 (02:10→21:33)
[2021-08-20 06:00] VITALS: BP 130/70
--- NOTE | 2021-08-20 06:53 | NUR ---
report given to Zunilda/HYACINTH Miles. All questions and concerns answered at this time.
[2021-08-20] MEDS: lactose-reduced food (Ensure Enlive) - 237ml bottle PO SCH ×3 (08:00→18:00)
[2021-08-20] MEDS: docusate sodium 100mg/10ml UD cup OGT SCH ×4 (08:00→20:00)
[2021-08-20] MEDS: K and/or MAG REPLACEMENT MC SCH ×2 (08:00→20:00)
[2021-08-20 10:02] LABS: BASOPHILS # (AUTO) 0.1 X10'3 (0-0.2); BASOPHILS % (AUTO) 0.1 % (0-1); EOSINOPHILS # (AUTO) 0.4 X10'3 (0-0.9); PLATELET COUNT 160 X10'3 (140-440)
[2021-08-20 10:03] LABS: HEMATOCRIT 41.7 % (42.0-52.0); HEMOGLOBIN 13.2 g/dl (14.0-17.9); LYMPHOCYTES # (AUTO) 24.4 X10'3 (1.1-4.8); LYMPHOCYTES % (AUTO) 63.3 % (21-51); MEAN CORPUSCULAR HGB CONC 31.7 g/dL (33.0-36.5); MEAN CORPUSCULAR VOLUME 104.1 FL (78-98); MEAN PLATELET VOLUME 9.3 FL (7.4-10.4); MONOCYTES # (AUTO) 1.8 X10'3 (0-0.9); MONOCYTES % (AUTO) 4.6 % (2-12); NEUTROPHILS # (AUTO) 11.9 X10'3 (1.8-7.7); RED CELL DISTRIBUTION WIDTH 14.5 % (11.5-14.5)
[2021-08-20 10:12] LABS: ALANINE AMINOTRANSFERASE 12 U/L (12-78); ALBUMIN 2.5 G/DL (3.4-5.0); ALBUMIN/GLOBULIN RATIO 0.8 (1.1-1.5); ALKALINE PHOSPHATASE 121 IU/L (46-116); ANION GAP 8 (8-16); ASPARTATE AMINO TRANSFERASE 20 U/L (10-37); BILIRUBIN,TOTAL 0.5 MG/DL (0.1-1.0); BLOOD UREA NITROGEN 61 MG/DL (7-18); BUN/CREATININE RATIO 37.2 (5.4-32.0); CALCIUM 8.9 MG/DL (8.5-10.1); CHLORIDE 102 MMOL/L (99-107); CREATININE 1.64 MG/DL (0.60-1.10); GLUCOSE 135 MG/DL (70-104); SODIUM 147 MMOL/L (135-145); TOTAL PROTEIN 5.8 G/DL (6.4-8.2); TRIGLYCERIDES 72 MG/DL (20-135); WHITE BLOOD COUNT 38.5 X10'3 (4.5-11.0); eGFR 41 ML/MIN
--- NOTE | 2021-08-20 10:15 | NUR ---
promotional table spacer Page Accepted promotional table spacer Message: [id number] has a critical WBC 38.5. Zunilda, RN [phone] Custom Responses: promotional table spacer Transaction number: [id number] Close [X] Send Another Page Thank you for visiting [facility] promotional table spacer
[2021-08-20 10:17] LABS: POTASSIUM 5.3 MMOL/L (3.5-5.1)
[2021-08-20] MEDS: furosemide 20 MG/2 ML vial IV SCH ×2 (10:17→20:35)
[2021-08-20 10:18] LABS: ABG BASE EXCESS 10.7 mmol/L (-2.0-2.0); ABG HCO3 39.5 mmol/L (22.0-26.0); ABG OXYGEN SATURATION 92.5 % (94-97); ABG PCO2 (T) 72.7 mmHg (35.0-48.0); ABG PO2 (T) 61.7 mmHg (75.0-100.0); ALLEN'S TEST POSITIVE; FCOHb 0.4 % (0.0-3.9); FMetHb 0.4 % (0.0-1.5); FO2Hb 91.8 % (94-97); PATIENT TEMPERATURE 36.8; RESPIRATORY RATE 18 b/min
[2021-08-20] MEDS: apixaban 5mg tablet PO SCH ×2 (10:18→20:36)
[2021-08-20] MEDS: carvedilol 6.25mg tablet PO SCH ×2 (10:18→20:36)
[2021-08-20] MEDS: pantoprazole 40mg Tablet.DR PO SCH (10:18)
[2021-08-20] MEDS: sertraline 50mg tablet OGT SCH (10:18)
[2021-08-20] MEDS: divalproex sodium 500mg tablet.DR PO SCH ×3 (10:18→20:36)
[2021-08-20] MEDS: lactobacillus rhamnosus 10,000 MMU CELLS/CAPSULE OGT SCH ×2 (10:18→20:36)
[2021-08-20] MEDS: levoTHYROXINE 100mcg tablet OGT SCH (10:19)
[2021-08-20] MEDS: gabapentin 300mg capsule PO SCH ×2 (10:19→20:36)
[2021-08-20] MEDS ORDERED: furosemide 40mg/4ml inj IV ONE (10:35)
--- NOTE | 2021-08-20 11:30 | NUR ---
Message: [id number] may have aspirated, can we get a chest xray? Please advise Ginger CLAROS ext [phone] Custom Responses: promotional table spacer Transaction number: [id number]
[2021-08-20 11:49] LABS: PLATELET ESTIMATE NORMAL; TOTAL CELLS COUNTED 100
[2021-08-20 11:50] LABS: STOMATOCYTES 2+
[2021-08-20 11:51] LABS: SMUDGE CELLS 2+
[2021-08-20 15:00] VITALS: BP 82/52
--- NOTE | 2021-08-20 15:09 | NUR ---
Message: Margaret has a blood pressure of 82/52 (60). Awaiting your response concerning a chest x-ray. Please advise what you would like to do. Thanks. Zunilda CLAROS ext [phone] Custom Responses: promotional table spacer Transaction number: [id number]
[2021-08-20 18:00] VITALS: BP 141/76
[2021-08-20] MEDS: insulin Lispro (HumaLOG) vial - multi-dose SQ SCH ×2 (19:43→21:01)
[2021-08-20] MEDS ORDERED: furosemide 40mg/4ml inj IV SCH (20:00)
[2021-08-20] MEDS: atorvastatin 10mg tablet OGT SCH (20:36)
[2021-08-20] MEDS: insulin glargine (Lantus) pen - multi-dose SQ SCH (21:03)
[2021-08-20 22:00] VITALS: BP 84/55
[2021-08-20 23:00] VITALS: BP 95/58
[2021-08-21] VITALS (7 sets, daily range): BP systolic 117–137; BP diastolic 58–77
[2021-08-21] MEDS: ipratropium/albuterol 3ml nebule NEB SCH ×4 (03:39→20:25)
--- NOTE | 2021-08-21 06:30 | NUR ---
Patient in room PCU 3028. I have received report from NI and had the opportunity to ask questions and assume patient care.
[2021-08-21] MEDS: levoTHYROXINE 100mcg tablet OGT SCH (07:00)
[2021-08-21] MEDS: pantoprazole 40mg Tablet.DR PO SCH (07:30)
[2021-08-21 07:34] LABS: BASOPHILS % (AUTO) 0.1 % (0-1); EOSINOPHILS # (AUTO) 0.2 X10'3 (0-0.9)
[2021-08-21 07:37] LABS: EOSINOPHILS % (AUTO) 0.6 % (0-6); HEMATOCRIT 39.7 % (42.0-52.0); HEMOGLOBIN 12.4 g/dl (14.0-17.9); LYMPHOCYTES # (AUTO) 22.7 X10'3 (1.1-4.8); MEAN CORPUSCULAR HEMOGLOBIN 32.6 PG (27.0-31.0); MEAN CORPUSCULAR HGB CONC 31.3 g/dL (33.0-36.5); MEAN CORPUSCULAR VOLUME 104.3 FL (78-98); MEAN PLATELET VOLUME 9.5 FL (7.4-10.4); MONOCYTES # (AUTO) 1.3 X10'3 (0-0.9); MONOCYTES % (AUTO) 3.9 % (2-12); NEUTROPHILS # (AUTO) 9.1 X10'3 (1.8-7.7); NEUTROPHILS % (AUTO) 27.4 % (42-75); PLATELET COUNT 154 X10'3 (140-440); RED BLOOD COUNT 3.81 X10'6 (4.70-6.10); RED CELL DISTRIBUTION WIDTH 14.8 % (11.5-14.5)
[2021-08-21] MEDS: lactose-reduced food (Ensure Enlive) - 237ml bottle PO SCH ×3 (08:00→18:00)
[2021-08-21] MEDS: gabapentin 300mg capsule PO SCH ×2 (08:00→20:28)
[2021-08-21] MEDS: sertraline 50mg tablet OGT SCH (08:00)
[2021-08-21] MEDS: divalproex sodium 500mg tablet.DR PO SCH ×2 (08:00→20:28)
[2021-08-21] MEDS: lactobacillus rhamnosus 10,000 MMU CELLS/CAPSULE OGT SCH ×2 (08:00→20:28)
[2021-08-21] MEDS: K and/or MAG REPLACEMENT MC SCH ×2 (08:00→18:36)
[2021-08-21 08:09] LABS: ALANINE AMINOTRANSFERASE 11 U/L (12-78); ALBUMIN 2.3 G/DL (3.4-5.0); ALBUMIN/GLOBULIN RATIO 0.5 (1.1-1.5); ALKALINE PHOSPHATASE 114 IU/L (46-116); ANION GAP 3 (8-16); ASPARTATE AMINO TRANSFERASE 12 U/L (10-37); BILIRUBIN,TOTAL 0.5 MG/DL (0.1-1.0); BLOOD UREA NITROGEN 72 MG/DL (7-18); BUN/CREATININE RATIO 36.7 (5.4-32.0); CHLORIDE 103 MMOL/L (99-107); CREATININE 1.96 MG/DL (0.60-1.10); GLUCOSE 260 MG/DL (70-104); PHOSPHORUS 4.4 MG/DL (2.3-4.5); POTASSIUM 5.2 MMOL/L (3.5-5.1); SODIUM 144 MMOL/L (135-145); TOTAL CARBON DIOXIDE 37.9 MMOL/L (24-32); TOTAL PROTEIN 6.8 G/DL (6.4-8.2); eGFR 34 ML/MIN
[2021-08-21 08:35] LABS: WHITE BLOOD COUNT 33.4 X10'3 (4.5-11.0)
[2021-08-21 08:55] LABS: PLATELET ESTIMATE NORMAL; TOTAL CELLS COUNTED 100
[2021-08-21 08:56] LABS: STOMATOCYTES 1+
--- NOTE | 2021-08-21 09:10 | NUR ---
Patient Samuel Geiger room 3028 WBC 33.7 last result 38.5. No ABT EMAR. Patient failed bedside swallow test and unable to take his PO meds. notified
[2021-08-21] MEDS: carVEDilol 3.125mg tablet PO SCH ×2 (10:24→20:28)
[2021-08-21] MEDS: apixaban 5mg tablet PO SCH ×2 (10:24→20:28)
[2021-08-21] MEDS: furosemide 20 MG/2 ML vial IV SCH ×2 (10:24→20:28)
[2021-08-21 11:57] LABS: ABG BASE EXCESS 6.2 mmol/L (-2.0-2.0); ABG HCO3 33.5 mmol/L (22.0-26.0); ABG OXYGEN SATURATION 96.1 % (94-97); ABG PCO2 (T) 59.8 mmHg (35.0-48.0); ABG PO2 (T) 82.9 mmHg (75.0-100.0); ALLEN'S TEST POSITIVE; FCOHb 0.4 % (0.0-3.9); FMetHb 0.2 % (0.0-1.5); FO2Hb 95.5 % (94-97); PATIENT TEMPERATURE 36.8; TOTAL HEMOGLOBIN 13.4 G/dl (14.0-18.0)
--- NOTE | 2021-08-21 12:29 | NUR ---
Patient Adama Geiger in room 3028A PCO2 60.3 last Result 73.3 on BIPAP FIO2 40%. Return call Sujey CLAROS [phone].
--- NOTE | 2021-08-21 16:23 | NUR ---
Message: [id number] NADIR. PT REMAINS NPO. UNSAFE PO. PT IS ALSO NO LONGER ON ANY ANTIBIOTICS. PLEASE CALL HIPOLITO CLAROS #[phone]
--- NOTE | 2021-08-21 16:51 | NUR ---
MD received patient results for WBC of 33.7, PCO2 60.3 and elevated blood sugar and being NPO. MD also aware of barium swallow test will be done monday. New order for NS AT 50CCML/HR.
--- NOTE | 2021-08-21 16:51 | NUR ---
Dr Tavarez. made aware of Mr. Juanjo Baker-room 3024W, being NPO. blood sugar checked at 1200 - 270mg/dl. no IV fluids.
[2021-08-21] MEDS: normal saline 1000ml 1,000 ML IV SCH (17:43)
[2021-08-21] MEDS: atorvastatin 10mg tablet OGT SCH (20:28)
[2021-08-21] MEDS: insulin glargine (Lantus) pen - multi-dose SQ SCH (20:30)
[2021-08-21] MEDS: docusate sodium 100mg/10ml UD cup OGT SCH (20:31)
[2021-08-22] MEDS: acetaminophen 325mg tablet OGT PRN (01:37)
[2021-08-22] MEDS: ipratropium/albuterol 3ml nebule NEB SCH ×4 (02:26→19:39)
[2021-08-22 04:08] VITALS: BP 126/76
[2021-08-22 06:00] VITALS: BP 147/94
--- NOTE | 2021-08-22 06:27 | NUR ---
report given to HYACINTH Rm. all questions and concerns answered at this time.
--- NOTE | 2021-08-22 06:36 | NUR ---
Patient in room PCU 3028. I have received report from Mary and had the opportunity to ask questions and assume patient care.
--- NOTE | 2021-08-22 07:32 | NUR ---
0730- RT AT PATIENTS BEDSIDE FOR BIPAP ASSESSMENT AND CHERYLE SNIDER. FOUND PATIENT ON 100% FIO2 BIPAP, SPO2 AT 100%. DECREASED PATIENT TO 40%, PATIENTS CURRENT SATURATIONS ARE 99% ON BIPAP. RT WILL CONTINUE TO TITRATE FIO2. Addendum: 08/22/21 at 0739 by Krysten Duggan RT Amended: Links added.
[2021-08-22] MEDS: docusate sodium 100mg/10ml UD cup OGT SCH ×2 (07:55→20:00)
[2021-08-22] MEDS: pantoprazole 40mg Tablet.DR PO SCH (07:56)
[2021-08-22] MEDS: sertraline 50mg tablet OGT SCH (07:56)
[2021-08-22] MEDS: divalproex sodium 500mg tablet.DR PO SCH ×2 (07:56→20:41)
[2021-08-22] MEDS: carVEDilol 3.125mg tablet PO SCH ×2 (07:56→20:41)
[2021-08-22] MEDS: levoTHYROXINE 100mcg tablet OGT SCH (07:56)
[2021-08-22] MEDS: apixaban 5mg tablet PO SCH ×2 (07:57→20:41)
[2021-08-22] MEDS: lactobacillus rhamnosus 10,000 MMU CELLS/CAPSULE OGT SCH ×2 (07:57→20:41)
[2021-08-22] MEDS: gabapentin 300mg capsule PO SCH ×2 (07:57→20:41)
[2021-08-22] MEDS: furosemide 20 MG/2 ML vial IV SCH ×2 (07:58→20:42)
[2021-08-22] MEDS: K and/or MAG REPLACEMENT MC SCH ×2 (08:00→20:00)
[2021-08-22] MEDS: lactose-reduced food (Ensure Enlive) - 237ml bottle PO SCH ×3 (08:00→18:00)
[2021-08-22 08:40] LABS: EOSINOPHILS # (AUTO) 0.2 X10'3 (0-0.9); EOSINOPHILS % (AUTO) 0.6 % (0-6); HEMATOCRIT 37.5 % (42.0-52.0); HEMOGLOBIN 11.9 g/dl (14.0-17.9); MEAN CORPUSCULAR HGB CONC 31.8 g/dL (33.0-36.5); MONOCYTES # (AUTO) 0.6 X10'3 (0-0.9)
[2021-08-22 08:41] LABS: BASOPHILS % (AUTO) 0.1 % (0-1); LYMPHOCYTES # (AUTO) 20.9 X10'3 (1.1-4.8); LYMPHOCYTES % (AUTO) 74.1 % (21-51); MEAN CORPUSCULAR HEMOGLOBIN 32.6 PG (27.0-31.0); MEAN CORPUSCULAR VOLUME 102.5 FL (78-98); MEAN PLATELET VOLUME 9.2 FL (7.4-10.4); MONOCYTES % (AUTO) 2.2 % (2-12); NEUTROPHILS # (AUTO) 6.5 X10'3 (1.8-7.7); PLATELET COUNT 157 X10'3 (140-440); RED BLOOD COUNT 3.66 X10'6 (4.70-6.10); RED CELL DISTRIBUTION WIDTH 14.4 % (11.5-14.5)
[2021-08-22 08:48] LABS: WHITE BLOOD COUNT 28.3 X10'3 (4.5-11.0)
--- NOTE | 2021-08-22 09:01 | NUR ---
MD Dr. Tavarez made aware about Patient 3024F Juanjo Baker WBC 28.3.
[2021-08-22 09:12] LABS: ALANINE AMINOTRANSFERASE 11 U/L (12-78); ALBUMIN 2.3 G/DL (3.4-5.0); ALBUMIN/GLOBULIN RATIO 0.7 (1.1-1.5); ANION GAP 5 (8-16); ASPARTATE AMINO TRANSFERASE 10 U/L (10-37); BILIRUBIN,TOTAL 0.4 MG/DL (0.1-1.0); BLOOD UREA NITROGEN 74 MG/DL (7-18); BUN/CREATININE RATIO 38.9 (5.4-32.0); CALCIUM 8.3 MG/DL (8.5-10.1); CHLORIDE 106 MMOL/L (99-107); GLUCOSE 348 MG/DL (70-104); POTASSIUM 4.9 MMOL/L (3.5-5.1); SODIUM 147 MMOL/L (135-145); TOTAL CARBON DIOXIDE 36.3 MMOL/L (24-32); TOTAL PROTEIN 5.7 G/DL (6.4-8.2); eGFR 35 ML/MIN
[2021-08-22 09:28] LABS: PLATELET ESTIMATE NORMAL; SMUDGE CELLS 2+; STOMATOCYTES 1+; TOTAL CELLS COUNTED 100
[2021-08-22 09:29] LABS: POLYCHROMASIA FEW
--- NOTE | 2021-08-22 09:54 | NUR ---
Reassessment: Per documentation, pt has been NPO since 08/19 though per LOCATION AND MEASUREMENT TECHNICIAN recs 08/20 pt able to tolerated MM5 diet. Pt pending further barium swallow, confirmed w/ RN that pt is currently NPO right now. Also on BiPAP at 40%. If pt to remain NPO, would benefit from nutrition support to meet needs. LBM 08/20. Will continue to monitor and make recommendations as appropriate. Recommendations: 1. IF diet unable to advance, initiate nutrition support if within POC 2. Diet per LOCATION AND MEASUREMENT TECHNICIAN pending barium swallow at this time, If diet advanced, Vegetarian per pt preference 3. Hold Ensure Enlive TIDWM; smoothies BIDBD 4. [place] food preferences: No meat, poultry or fish; tuna and eggs are okay 5. Routine bowel care 6. Daily scaled weights per rx Addendum: 08/22/21 at [address] Amended: Links added.
[2021-08-22 10:11] LABS: ALKALINE PHOSPHATASE 110 IU/L (46-116)
[2021-08-22 11:00] VITALS: BP 154/81
--- NOTE | 2021-08-22 12:30 | NUR ---
Patient blood sugar 310 from 326 asymptomatic. Patient is NPO due to failing bedside swallowing exam. Safety measures in place.
[2021-08-22 15:00] VITALS: BP 151/72
[2021-08-22] MEDS: normal saline 1000ml 1,000 ML IV SCH (17:42)
[2021-08-22 18:00] VITALS: BP 114/76
--- NOTE | 2021-08-22 18:31 | NUR ---
Problems reprioritized. Patient report given, questions answered & plan of care reviewed with bessy.
[2021-08-22] MEDS: atorvastatin 10mg tablet OGT SCH (20:41)
[2021-08-22] MEDS: insulin Lispro (HumaLOG) vial - multi-dose SQ SCH (21:48)
[2021-08-22] MEDS: insulin glargine (Lantus) pen - multi-dose SQ SCH (21:50)
[2021-08-22 22:00] VITALS: BP 105/67
[2021-08-22] MEDS ORDERED: methylPREDNISolone sod succ 125mg/2ml vial IV ONE (22:00)
[2021-08-23 02:00] VITALS: BP 123/71
[2021-08-23] MEDS: methylPREDNISolone sod succ/PF 40mg inj. IV SCH ×4 (02:00→20:58)
[2021-08-23] MEDS: ipratropium/albuterol 3ml nebule NEB SCH ×4 (02:21→20:13)
[2021-08-23 06:00] VITALS: BP 137/60
--- NOTE | 2021-08-23 06:40 | NUR ---
Patient in room PCU 3028. I have received report from Trinity and had the opportunity to ask questions and assume patient care.
[2021-08-23] MEDS ORDERED: BARIUM SULFATE 340 ML SUSP.RECON***PROCEDURE AREA ONLY**DONT ENTER PO ONE (08:00)
[2021-08-23] MEDS: docusate sodium 100mg/10ml UD cup OGT SCH ×2 (08:00→20:57)
[2021-08-23] MEDS: K and/or MAG REPLACEMENT MC SCH ×2 (08:00→20:00)
[2021-08-23] MEDS: lactose-reduced food (Ensure Enlive) - 237ml bottle PO SCH ×3 (08:00→18:00)
[2021-08-23] MEDS: furosemide 20 MG/2 ML vial IV SCH ×2 (08:54→20:58)
--- NOTE | 2021-08-23 09:16 | NUR ---
Cresencio consult: Noted cresencio 11, per [facility] partial thickness fissure on gluteal area resolved and skin tear on R ankle resolving. Addendum: 08/23/21 at [address] Amended: Links added.
[2021-08-23] MEDS: divalproex sodium 500mg tablet.DR PO SCH ×2 (09:37→20:57)
[2021-08-23] MEDS: lactobacillus rhamnosus 10,000 MMU CELLS/CAPSULE OGT SCH ×2 (09:37→20:57)
[2021-08-23] MEDS: apixaban 5mg tablet PO SCH ×2 (09:37→20:58)
[2021-08-23] MEDS: sertraline 50mg tablet OGT SCH (09:37)
[2021-08-23] MEDS: gabapentin 300mg capsule PO SCH ×2 (09:37→20:57)
[2021-08-23 09:38] LABS: BASOPHILS % (AUTO) 0.1 % (0-1); EOSINOPHILS # (AUTO) 0.1 X10'3 (0-0.9); HEMOGLOBIN 12.3 g/dl (14.0-17.9); MEAN CORPUSCULAR HEMOGLOBIN 33.1 PG (27.0-31.0); MEAN CORPUSCULAR HGB CONC 32.2 g/dL (33.0-36.5); MONOCYTES # (AUTO) 0.2 X10'3 (0-0.9); PLATELET COUNT 140 X10'3 (140-440); RED BLOOD COUNT 3.71 X10'6 (4.70-6.10); RED CELL DISTRIBUTION WIDTH 14.1 % (11.5-14.5)
[2021-08-23] MEDS: carVEDilol 3.125mg tablet PO SCH ×2 (09:38→20:57)
[2021-08-23 09:39] LABS: EOSINOPHILS % (AUTO) 0.2 % (0-6); HEMATOCRIT 38.1 % (42.0-52.0); LYMPHOCYTES # (AUTO) 18.2 X10'3 (1.1-4.8); LYMPHOCYTES % (AUTO) 70.8 % (21-51); MEAN CORPUSCULAR VOLUME 102.6 FL (78-98); NEUTROPHILS # (AUTO) 7.2 X10'3 (1.8-7.7); NEUTROPHILS % (AUTO) 27.9 % (42-75)
[2021-08-23 09:42] LABS: WHITE BLOOD COUNT 25.7 X10'3 (4.5-11.0)
[2021-08-23] MEDS: insulin Lispro (HumaLOG) vial - multi-dose SQ SCH ×4 (09:45→23:30)
[2021-08-23] MEDS: pantoprazole 40mg Tablet.DR PO SCH (09:54)
[2021-08-23] MEDS: levoTHYROXINE 100mcg tablet OGT SCH (09:54)
--- NOTE | 2021-08-23 09:59 | NUR ---
Dr. Tavarez made aware of patient WBC 25.7. No new orders.
[2021-08-23 10:10] LABS: ALANINE AMINOTRANSFERASE 11 U/L (12-78); ALBUMIN 2.4 G/DL (3.4-5.0); ALBUMIN/GLOBULIN RATIO 0.7 (1.1-1.5); ALKALINE PHOSPHATASE 113 IU/L (46-116); ANION GAP 3 (8-16); ASPARTATE AMINO TRANSFERASE 11 U/L (10-37); BILIRUBIN,TOTAL 0.4 MG/DL (0.1-1.0); BLOOD UREA NITROGEN 63 MG/DL (7-18); BUN/CREATININE RATIO 37.7 (5.4-32.0); CALCIUM 8.8 MG/DL (8.5-10.1); CHLORIDE 105 MMOL/L (99-107); CREATININE 1.67 MG/DL (0.60-1.10); GLUCOSE 313 MG/DL (70-104); POTASSIUM 4.5 MMOL/L (3.5-5.1); SODIUM 147 MMOL/L (135-145); TOTAL CARBON DIOXIDE 39.2 MMOL/L (24-32); TOTAL PROTEIN 5.7 G/DL (6.4-8.2); eGFR 41 ML/MIN
[2021-08-23 11:00] VITALS: BP 128/62
[2021-08-23 11:22] LABS: TOTAL CELLS COUNTED 100
[2021-08-23 11:23] LABS: PLATELET ESTIMATE NORMAL; SMUDGE CELLS 2+
[2021-08-23 15:00] VITALS: BP 132/78
[2021-08-23 18:00] VITALS: BP 136/71
--- NOTE | 2021-08-23 18:37 | NUR ---
Problems reprioritized. Patient report given, questions answered & plan of care reviewed with edith.
--- NOTE | 2021-08-23 18:37 | NUR ---
Patient in room PCU 3028. I have received report from HYACINTH Rm and had the opportunity to ask questions and assume patient care.
[2021-08-23] MEDS: atorvastatin 10mg tablet OGT SCH (20:58)
[2021-08-23 22:00] VITALS: BP 129/77
[2021-08-23] MEDS: insulin glargine (Lantus) pen - multi-dose SQ SCH (23:31)
[2021-08-24 02:00] VITALS: BP 126/67
[2021-08-24] MEDS: ipratropium/albuterol 3ml nebule NEB SCH ×4 (02:12→20:30)
[2021-08-24] MEDS: methylPREDNISolone sod succ/PF 40mg inj. IV SCH ×4 (02:24→19:37)
[2021-08-24 05:35] LABS: BASOPHILS % (AUTO) 0 % (0-1); EOSINOPHILS % (AUTO) 0 % (0-6); MEAN CORPUSCULAR HGB CONC 31.5 g/dL (33.0-36.5); PLATELET COUNT 158 X10'3 (140-440)
[2021-08-24 05:38] LABS: HEMATOCRIT 39.6 % (42.0-52.0); HEMOGLOBIN 12.5 g/dl (14.0-17.9); LYMPHOCYTES # (AUTO) 25.3 X10'3 (1.1-4.8); LYMPHOCYTES % (AUTO) 64.6 % (21-51); MEAN CORPUSCULAR HEMOGLOBIN 32.6 PG (27.0-31.0); MEAN CORPUSCULAR VOLUME 103.4 FL (78-98); MEAN PLATELET VOLUME 9.2 FL (7.4-10.4); MONOCYTES # (AUTO) 0.7 X10'3 (0-0.9); MONOCYTES % (AUTO) 1.8 % (2-12); NEUTROPHILS # (AUTO) 13.1 X10'3 (1.8-7.7); NEUTROPHILS % (AUTO) 33.6 % (42-75); RED BLOOD COUNT 3.83 X10'6 (4.70-6.10); RED CELL DISTRIBUTION WIDTH 14.4 % (11.5-14.5)
[2021-08-24 05:53] LABS: WHITE BLOOD COUNT 39.1 X10'3 (4.5-11.0)
[2021-08-24 05:55] LABS: ALANINE AMINOTRANSFERASE 12 U/L (12-78); ALBUMIN 2.5 G/DL (3.4-5.0); ALBUMIN/GLOBULIN RATIO 0.7 (1.1-1.5); ALKALINE PHOSPHATASE 118 IU/L (46-116); ANION GAP 7 (8-16); ASPARTATE AMINO TRANSFERASE 13 U/L (10-37); BILIRUBIN,TOTAL 0.3 MG/DL (0.1-1.0); BLOOD UREA NITROGEN 65 MG/DL (7-18); BUN/CREATININE RATIO 36.1 (5.4-32.0); CALCIUM 8.6 MG/DL (8.5-10.1); CHLORIDE 102 MMOL/L (99-107); GLUCOSE 202 MG/DL (70-104); MAGNESIUM 2.2 MG/DL (1.5-2.4); PHOSPHORUS 3.7 MG/DL (2.3-4.5); SODIUM 143 MMOL/L (135-145); TOTAL CARBON DIOXIDE 33.6 MMOL/L (24-32); eGFR 37 ML/MIN
[2021-08-24 06:00] VITALS: BP 129/74
[2021-08-24 06:00] LABS: POTASSIUM 4.6 MMOL/L (3.5-5.1)
--- NOTE | 2021-08-24 06:43 | NUR ---
Problems reprioritized. Patient report given, questions answered & plan of care reviewed with HYACINTH Hdz.
[2021-08-24] MEDS: levoTHYROXINE 100mcg tablet OGT SCH (07:00)
[2021-08-24] MEDS: lactose-reduced food (Ensure Enlive) - 237ml bottle PO SCH ×3 (08:00→18:00)
[2021-08-24] MEDS: K and/or MAG REPLACEMENT MC SCH ×2 (08:00→20:00)
[2021-08-24] MEDS: docusate sodium 100mg/10ml UD cup OGT SCH ×2 (08:00→08:19)
[2021-08-24 08:14] LABS: PLATELET ESTIMATE DECREASED; TOTAL CELLS COUNTED 100
[2021-08-24 08:16] LABS: SMUDGE CELLS 1+; STOMATOCYTES 1+
[2021-08-24] MEDS: gabapentin 300mg capsule PO SCH ×2 (08:19→19:38)
[2021-08-24] MEDS: pantoprazole 40mg Tablet.DR PO SCH (08:19)
[2021-08-24] MEDS: furosemide 20 MG/2 ML vial IV SCH ×2 (08:19→19:37)
[2021-08-24] MEDS: lactobacillus rhamnosus 10,000 MMU CELLS/CAPSULE OGT SCH ×2 (08:20→19:38)
[2021-08-24] MEDS: apixaban 5mg tablet PO SCH ×2 (08:20→19:38)
[2021-08-24] MEDS: sertraline 50mg tablet OGT SCH (08:20)
[2021-08-24] MEDS: carVEDilol 3.125mg tablet PO SCH ×2 (08:20→19:38)
[2021-08-24] MEDS: divalproex sodium 500mg tablet.DR PO SCH ×2 (08:20→19:38)
[2021-08-24] MEDS: insulin Lispro (HumaLOG) vial - multi-dose SQ SCH ×3 (10:06→21:50)
[2021-08-24 11:00] VITALS: BP 116/70
--- NOTE | 2021-08-24 11:47 | NUR ---
Reassessment: Pt has been advanced back to MM5/CCHO/HH diet after ENROLLMENT MANAGEMENT MANAGER assessment, was NPO from 08/19-. Pt consumed 75% x 2 meals on 08/23 and mostly 100% of ONS 08/23. If PO continues to be greater than 75% of meals, may consider decreasing frequency of ONS. Pt continues on BiPAP. LBM 08/20 receiving routine colace. Will continue to monitor and make recommendations as appropriate. Recommendations: 1. Continue MM5/CCHO diet as tolerated per ENROLLMENT MANAGEMENT MANAGER/MD recs, consider removing Heart Healthy 2. Ensure Enlive TIDWM; smoothies BIDBD. 3. [place] food preferences: No meat, poultry or fish; tuna and eggs are okay 4. Routine bowel care 5. Daily scaled weights per rx Addendum: 08/24/21 at [address] Amended: Links added.
--- NOTE | 2021-08-24 14:14 | NUR ---
Sent msg to pharmacy to get a new bottle of insulin to cover for lunch time.
[2021-08-24 15:00] VITALS: BP 113/65
--- NOTE | 2021-08-24 18:30 | NUR ---
Patient in room PCU 3028. I have received report from HYACINTH Hdz and had the opportunity to ask questions and assume patient care.
[2021-08-24 19:00] VITALS: BP 127/69
[2021-08-24] MEDS: atorvastatin 10mg tablet OGT SCH (19:40)
[2021-08-24] MEDS: insulin glargine (Lantus) pen - multi-dose SQ SCH (21:51)
[2021-08-24 23:00] VITALS: BP 119/75
[2021-08-25 03:00] VITALS: BP 135/85
[2021-08-25] MEDS: ipratropium/albuterol 3ml nebule NEB SCH ×4 (03:25→15:00)
[2021-08-25 05:57] LABS: ALANINE AMINOTRANSFERASE 10 U/L (12-78); ALBUMIN 2.6 G/DL (3.4-5.0); ALBUMIN/GLOBULIN RATIO 0.8 (1.1-1.5); ALKALINE PHOSPHATASE 118 IU/L (46-116); ANION GAP 5 (8-16); ASPARTATE AMINO TRANSFERASE 8 U/L (10-37); BILIRUBIN,TOTAL 0.3 MG/DL (0.1-1.0); BLOOD UREA NITROGEN 66 MG/DL (7-18); BUN/CREATININE RATIO 31.7 (5.4-32.0); CALCIUM 8.6 MG/DL (8.5-10.1); CHLORIDE 100 MMOL/L (99-107); CREATININE 2.08 MG/DL (0.60-1.10); GLUCOSE 238 MG/DL (70-104); MAGNESIUM 2.2 MG/DL (1.5-2.4); PHOSPHORUS 3.7 MG/DL (2.3-4.5); POTASSIUM 4.5 MMOL/L (3.5-5.1); SODIUM 143 MMOL/L (135-145); TOTAL CARBON DIOXIDE 38.3 MMOL/L (24-32); TOTAL PROTEIN 5.9 G/DL (6.4-8.2); eGFR 31 ML/MIN
[2021-08-25 06:00] VITALS: BP 135/87
--- NOTE | 2021-08-25 06:33 | NUR ---
Problems reprioritized. Patient report given, questions answered & plan of care reviewed with HYACINTH Ward.
[2021-08-25 06:36] LABS: EOSINOPHILS % (AUTO) 0 % (0-6); HEMOGLOBIN 12.4 g/dl (14.0-17.9); MEAN CORPUSCULAR HEMOGLOBIN 32.9 PG (27.0-31.0); MEAN PLATELET VOLUME 9.2 FL (7.4-10.4)
[2021-08-25 06:41] LABS: BASOPHILS % (AUTO) 0 % (0-1); HEMATOCRIT 38.8 % (42.0-52.0); LYMPHOCYTES # (AUTO) 21.8 X10'3 (1.1-4.8); LYMPHOCYTES % (AUTO) 67.7 % (21-51); MEAN CORPUSCULAR HGB CONC 31.9 g/dL (33.0-36.5); MONOCYTES # (AUTO) 0.8 X10'3 (0-0.9); MONOCYTES % (AUTO) 2.4 % (2-12); NEUTROPHILS # (AUTO) 9.6 X10'3 (1.8-7.7); NEUTROPHILS % (AUTO) 29.9 % (42-75); PLATELET COUNT 144 X10'3 (140-440); RED BLOOD COUNT 3.77 X10'6 (4.70-6.10); RED CELL DISTRIBUTION WIDTH 14.2 % (11.5-14.5)
[2021-08-25 06:43] LABS: WHITE BLOOD COUNT 32.2 X10'3 (4.5-11.0)
[2021-08-25] MEDS ORDERED: methylPREDNISolone sod succ/PF 40mg inj. IV SCH (08:00)
[2021-08-25] MEDS: K and/or MAG REPLACEMENT MC SCH (08:00)
[2021-08-25 08:08] LABS: PLATELET ESTIMATE NORMAL; TOTAL CELLS COUNTED 100
[2021-08-25 08:09] LABS: STOMATOCYTES 1+
[2021-08-25 08:11] LABS: SMUDGE CELLS 1+
[2021-08-25] MEDS: sertraline 50mg tablet OGT SCH (08:45)
[2021-08-25] MEDS: levoTHYROXINE 100mcg tablet OGT SCH (08:45)
[2021-08-25] MEDS: furosemide 20 MG/2 ML vial IV SCH (08:46)
[2021-08-25] MEDS: gabapentin 300mg capsule PO SCH (08:46)
[2021-08-25] MEDS: docusate sodium 100mg/10ml UD cup OGT SCH (08:46)
[2021-08-25] MEDS: apixaban 5mg tablet PO SCH (08:46)
[2021-08-25] MEDS: divalproex sodium 500mg tablet.DR PO SCH (08:46)
[2021-08-25] MEDS: pantoprazole 40mg Tablet.DR PO SCH (08:46)
[2021-08-25] MEDS: lactobacillus rhamnosus 10,000 MMU CELLS/CAPSULE OGT SCH (08:46)
[2021-08-25] MEDS: carVEDilol 3.125mg tablet PO SCH (08:46)
[2021-08-25] MEDS: lactose-reduced food (Ensure Enlive) - 237ml bottle PO SCH ×3 (08:47→14:49)
--- NOTE | 2021-08-25 09:58 | NUR ---
ORDERS FOR STAT CHEST XRAY PUT IN PER DR. HAGAN. PATIENT ON 100% BIPAP AND OXYGEN SATURATIONS ARE AT 78% AND NOT RECOVERING.
--- NOTE | 2021-08-25 10:24 | NUR ---
ORDERS FOR 60MG IV LASIX AND STAT COVID TEST PUT IN PER DR. HAGAN.
[2021-08-25] MEDS ORDERED: furosemide 10 MG/1 ML 10ml inj IV ONE (10:25)
[2021-08-25 11:00] VITALS: BP 120/78
[2021-08-25] MEDS ORDERED: piperacillin/tazo 3.375gm/50ml 50 ML IV SCH (12:15)
--- NOTE | 2021-08-25 12:56 | NUR ---
08/25/21 1015: Wound care in for skin assessment. Arrived at the room, the primary nurse with an aide are at the bedside. The patient is in high Sommers's with BiPAP mask applied. The patient appears to be struggling to breathe. The primary nurse said the patient has been experiencing worsening SOB and to check back later. 08/25/21 1245: Back to check with primary nurse on the patient's condition for skin assessment. The primary nurse reports that the patient has finally been stabilized and is resting. She states that moving him around for skin assessment is not recommended secondary to his current condition. She was told that wound care will check back tomorrow for assessment. Report given to wound care charge nurse. Addendum: 08/25/21 at 1309 by Trang Olea RN Amended: Links added. Addendum: 08/25/21 at 1420 by Pricilla Guerra RN Reviewed by Pricilla Guerra, RN
[2021-08-25] MEDS: VANCOMYCIN 1GM/200ML IVPB 200 ML IV SCH ×2 (13:19→13:20)
[2021-08-25 15:00] VITALS: BP 91/63
--- NOTE | 2021-08-25 15:15 | NUR ---
PAGED DR. HAGAN REGARDING PATIENT'S FAMILY BEING HERE Message: [id number]. CHIP SCHMITZ. PATIENT'S FAMILY IS HERE. THANK YOU. JEANA CLAROS X [phone]
--- NOTE | 2021-08-25 16:10 | NUR ---
PAGED DR. HAGAN REGARDING FAMILY WANTING TO CHANGE THE CODE STATUS TO DNR. Message: [id number]. CHIP SCHMITZ. FAMILY WOULD LIKE FOR PATIENT TO CHANGE CODE STATUS TO DNR. THANK YOU. JEANA CLAROS X [phone]
[2021-08-25] MEDS ORDERED: LORazepam 2 mg/ml vial IV PRN (18:00)
[2021-08-25] MEDS ORDERED: morphine 10mg/0.5ml (conc. morphine) oral syringe PO PRN (18:00)
--- NOTE | 2021-08-25 18:30 | NUR ---
Problems reprioritized. Patient report given, questions answered & plan of care reviewed with GODFREY CLAROS.
--- NOTE | 2021-08-25 19:00 | NUR ---
Hourly rounding in progress, pt 's family requested the pt to be medicated with Ativan and to place pt on NC; pt medicated. Continue to monitor pt's respiratory status. Comfort care in progress.
--- NOTE | 2021-08-25 19:10 | NUR ---
Mr Baker is presently being placed on Comfort care at this time. At the start of this shift Mr Baker was having breakfast with the NC in place. He was noted to be both pleasant and cooperative at the time. When he completed breakfast he was replace on Bipap at 50% oxygenation. This he tolerated well. He lifted his mask in order to self suction with the yanker. thereafter staff was unable to bring is oxygenation up to normal limits. he became less responsive but he could be aroused to answer questions. His code status clearly stated no intubation. he was placed on max amount of first assistant the bipap mask could provide. His daughter was called to be made aware of the change in her fathers status and encouraged to come in as soon as she could. Family is at the bedside at this time.
[2021-08-25] MEDS ORDERED: furosemide 20 MG/2 ML vial IV SCH (20:00)
--- NOTE | 2021-08-25 20:08 | NUR ---
Pt surrounded by family members took his last breath at 2007. Arrangement made by his daughter to be picked up by the home. Dr Yeager notified of the patient passing. transplant donor network called at 2018 and spoke with Ms. Ginny Beltran. She informed med that the pt is not a candidate. reference number [id number]. Called to the home and information given. No estimate time given for greens picker.
[2021-08-28] MEDS ORDERED: VANCOMYCIN LEVEL IV ONE (12:30)
== END 2021-08-25 22:35 | DRG 207 ==
LOC: ER 12:32 → ED HOLD 16:10 → ICU 2S 18:28 → PCU 3S 08-05 17:19
PROVIDERS: ADMIT Internal Medicine Critical Care Medicine; ATTEND Internal Medicine Critical Care Medicine
PROC: 5A1955Z Respiratory Ventilation, Greater than 96 Consecutive Hours (ICD-10-PCS; principal; 2021-07-29)
PROC: 0BH17EZ Insertion of Endotracheal Airway into Trachea, Via Natural or Artificial Opening (ICD-10-PCS; 2021-07-29)
PROC: 5A09357 Assistance with Respiratory Ventilation, Less than 24 Consecutive Hours, Continuous Positive Airway Pressure (ICD-10-PCS; 2021-07-29)
PROC: 5A09357 Assistance with Respiratory Ventilation, Less than 24 Consecutive Hours, Continuous Positive Airway Pressure (ICD-10-PCS; 2021-08-15)
PROC: 5A0935A Assistance with Respiratory Ventilation, Less than 24 Consecutive Hours, High Flow/Velocity Cannula (ICD-10-PCS; 2021-08-16)
PROC: 5A09357 Assistance with Respiratory Ventilation, Less than 24 Consecutive Hours, Continuous Positive Airway Pressure (ICD-10-PCS; 2021-08-17)
PROC: 5A09357 Assistance with Respiratory Ventilation, Less than 24 Consecutive Hours, Continuous Positive Airway Pressure (ICD-10-PCS; 2021-08-18)
PROC: 5A09357 Assistance with Respiratory Ventilation, Less than 24 Consecutive Hours, Continuous Positive Airway Pressure (ICD-10-PCS; 2021-08-19)
PROC: 5A09457 Assistance with Respiratory Ventilation, 24-96 Consecutive Hours, Continuous Positive Airway Pressure (ICD-10-PCS; 2021-08-20)
PROC: 5A09357 Assistance with Respiratory Ventilation, Less than 24 Consecutive Hours, Continuous Positive Airway Pressure (ICD-10-PCS; 2021-08-22)
PROC: 5A09357 Assistance with Respiratory Ventilation, Less than 24 Consecutive Hours, Continuous Positive Airway Pressure (ICD-10-PCS; 2021-08-23)
PROC: 5A09357 Assistance with Respiratory Ventilation, Less than 24 Consecutive Hours, Continuous Positive Airway Pressure (ICD-10-PCS; 2021-08-24)
PROC: 5A09357 Assistance with Respiratory Ventilation, Less than 24 Consecutive Hours, Continuous Positive Airway Pressure (ICD-10-PCS; 2021-08-25)
DX: J69.0 Pneumonitis due to inhalation of food and vomit (principal); J96.02 Acute respiratory failure with hypercapnia; G93.41 Metabolic encephalopathy; I50.33 Acute on chronic diastolic (congestive) heart failure; J96.01 Acute respiratory failure with hypoxia; C91.10 Chronic lymphocytic leukemia of B-cell type not having achieved remission; N17.9 Acute kidney failure, unspecified; E87.2 Acidosis; E87.0 Hyperosmolality and hypernatremia; I48.92 Unspecified atrial flutter; I13.0 Hypertensive heart and chronic kidney disease with heart failure and stage 1 through stage 4 chronic kidney disease, or unspecified chronic kidney disease; Z68.41 Body mass index [BMI] 40.0-44.9, adult; Z20.822 Contact with and (suspected) exposure to COVID-19; E66.01 Morbid (severe) obesity due to excess calories; I95.9 Hypotension, unspecified; N18.30 Chronic kidney disease, stage 3 unspecified; T88.4XXA Failed or difficult intubation, initial encounter; E78.5 Hyperlipidemia, unspecified; K21.9 Gastro-esophageal reflux disease without esophagitis; I50.813 Acute on chronic right heart failure; E11.22 Type 2 diabetes mellitus with diabetic chronic kidney disease; E87.5 Hyperkalemia; E11.65 Type 2 diabetes mellitus with hyperglycemia; E03.9 Hypothyroidism, unspecified; I25.10 Atherosclerotic heart disease of native coronary artery without angina pectoris; Z88.5 Allergy status to narcotic agent; Z79.899 Other long term (current) drug therapy; Z79.4 Long term (current) use of insulin; Z79.01 Long term (current) use of anticoagulants
CPT/HCPCS: 36000; 36415; 36600; 70450; 70490; 71045; 71250; 74230; 76770; 76937; 80048; 80053; 81001; 82570; 82803; 82947; 82948; 83036; 83605; 83735; 83880; 84100; 84132; 84134; 84145; 84156; 84300; 84443; 84478; 84484; 85007; 85018; 85025; 87040; 87070; 87207; 87502; 87503; 87635; 92508; 92616; 93005; 93306; 94002; 94003; 94640; 94660; 94667; 94760; 94799; 96365; 96368; 96375; 97110; 97112; 97116; 97161; 97530; 97535; 99291; 99292; A7015; C9803; G0378; J0282; J0360; J0456; J0696; J1265; J1644; J1815; J1940; J2060; J2250; J2920; J2930; J3010; J3370; J3475; J3480; J3490; J7030; J7060